=== PATIENT | female | born 1980 | race Caucasian/White ===

== ENCOUNTER 2022-04-28 01:36 | Outpatient (CLI) | payer MEDICAID, SELFPAY ==
[2022-04-28 07:53] LABS: HCT 40.9 % (36.0-46.0); HGB 13.7 g/dL (11.2-15.7); MCH 29.8 pg (27.0-33.0); MCHC 33.5 % (32.0-36.0); MCV 89 fL (80-95); MPV 10.7 fL (8.0-11.0); Platelet Count 203 10^3/uL (130-400); RBC 4.59 10^6/uL (3.93-5.22); RDW 12.4 % (11.7-14.6); RDW-SD 40.3 fL; WBC 7.24 10^3/uL (4.4-10.8)
[2022-04-28 09:25] LABS: ALT 24 U/L (14-59); AST 11 U/L (15-37); Alkaline Phosphatase 90 U/L (46-116); Anion Gap 8.1 mmol/L (3-11); BUN 20 mg/dL (7-18); Bilirubin, Total 0.4 mg/dL (0.2-1.0); CO2 28.9 mmol/L (21.0-32.0); CREATININE 0.7 mg/dL (0.55-1.02); Calcium 8.9 mg/dL (8.5-10.1); Calculated LDL 97 mg/dL (<100); Chloride 102 mmol/L (98-107); Cholesterol 164 mg/dL (<200); Glucose 79 mg/dL (74-106); HDL Cholesterol 57 mg/dL (40-60); Potassium 4.1 mmol/L (3.5-5.1); Sodium 139 mmol/L (136-145); Total Protein 7.2 g/dL (6.4-8.2); Triglyceride 54 mg/dL (<150)
== END 2022-04-28 01:37 | disposition home or self-care (01) ==
LOC: LBO 01:38
PROVIDERS: PCP Student in an Organized Health Care Education/Training Program
DX: I10 Essential (primary) hypertension (principal); N28.9 Disorder of kidney and ureter, unspecified; Z13.0 Encounter for screening for diseases of the blood and blood-forming organs and certain disorders involving the immune mechanism
CPT/HCPCS: 36415; 80053; 80061; 85027

== ENCOUNTER → 2022-08-01 10:15 | Outpatient (CLI) | payer MEDICAID, SELFPAY ==
--- NOTE | 2022-08-01 | DI.RAD_ITS ---
Exam(s) XR ABDOMEN FLAT PLATE EXAM: XR ABDOMEN FLAT PLATE CLINICAL HISTORY: RIGHT LOWER QUADRANT PAINX1 WEEK, QUESTION DEGREE OF STOOL BURDEN. TECHNIQUE: 2D digital imaging was performed. COMPARISON: No exams were available for comparison FINDINGS: Single view. Air is seen in the stomach which is not distended. There is a 3 millimeter calculus in the inferior pole calyx of the right kidney noted. No calculi in seen distally in the ureters. Small calcification left side of the pelvis has appearance of a proba ble phlebolith. There is air in the splenic flexure of the colon as well as air within the sigmoid. No pneumatosis. There is sacralization of the L5 lumbar spine segment. IMPRESSION: Small calculus projected over the inferior pole the right kidney. Other findings as above. DATA REPOSITORY: RADIATION DOSE DELIVERED:
--- NOTE | 2022-08-01 11:11 | DI.VRAD_ITS ---
PROCEDURE INFORMATION: Exam: XR Abdomen Exam date and time: 08/01/2022 10:58 AM Age: 42 years old Clinical indication: Other: Right lower abdominal pain, question degree of stool burden TECHNIQUE: Imaging protocol: Radiologic exam of the abdomen. Views: Frontal supine view of the abdomen. 1 View. COMPARISON: No relevant prior studies available. FINDINGS: Gastrointestinal tract: Mild fecal material along the left colon. Bones/joints: Unremarkable. IMPRESSION: Mild fecal material along the left colon. Dictated and Authenticated by: Nilesh Beatty MD. Ordering:NICOLE Rajan MD
== END ==
PROVIDERS: PCP Student in an Organized Health Care Education/Training Program; Visit Provider Physician Assistant Medical
DX: R10.31 Right lower quadrant pain (principal); N20.0 Calculus of kidney
CPT/HCPCS: 74018

== ENCOUNTER 2022-08-01 10:26 | Outpatient (REF) | payer MEDICAID, SELFPAY ==
[2022-08-01 16:46] LABS: Abs Immature Grans 0.03 10^3/uL (0.0-0.06); Absolute Eosinophil Count 0.18 10^3/uL (0.0-0.7); Absolute Lymphocyte Count 2.35 10^3/uL (1.2-3.4); Absolute Monocyte Count 0.95 10^3/uL (0.1-0.8); Basophils % 0.6; Eosinophils % 1.4; HCT 43.5 % (36.0-46.0); HGB 14.2 g/dL (11.2-15.7); Immature Grans % 0.2; Lymphocytes % 18.5; MCH 29.9 pg (27.0-33.0); MCHC 32.6 % (32.0-36.0); MCV 92 fL (80-95); MPV 12.1 fL (8.0-11.0); Monocytes % 7.5; Neutrophils % 71.8; Platelet Count 253 10^3/uL (130-400); RBC 4.75 10^6/uL (3.93-5.22); RDW 11.9 % (11.7-14.6); WBC 12.68 10^3/uL (4.4-10.8)
[2022-08-01 16:52] LABS: ALT 21 U/L (14-59); AST 20 U/L (15-37); Albumin 3.5 g/dL (3.4-5.0); Alkaline Phosphatase 97 U/L (46-116); Anion Gap 6.5 mmol/L (3-11); BUN 13 mg/dL (7-18); Bilirubin, Total 0.5 mg/dL (0.2-1.0); CO2 29.5 mmol/L (21.0-32.0); CREATININE 0.7 mg/dL (0.55-1.02); Calcium 9.1 mg/dL (8.5-10.1); Chloride 102 mmol/L (98-107); Estimated GFR 112.05 (mL/min/1.73m2); Glucose 80 mg/dL (74-106); Sodium 138 mmol/L (136-145); Total Protein 7.5 g/dL (6.4-8.2)
[2022-08-01 17:07] LABS: Absolute Basophil Count 0.08 10^3/uL (0.0-0.2)
== END 2022-08-01 10:27 | disposition home or self-care (01) ==
LOC: LBN 10:26
PROVIDERS: PCP Student in an Organized Health Care Education/Training Program; Visit Provider Physician Assistant Medical
DX: R10.31 Right lower quadrant pain (principal)
CPT/HCPCS: 80053; 85025

== ENCOUNTER → 2022-08-03 14:43 | Outpatient (CLI) | payer MEDICAID, SELFPAY ==
--- NOTE | 2022-08-03 | DI.US_ITS ---
Exam(s) US PELVIS TRANSVAGINAL EXAM: US PELVIS TRANSVAGINAL CLINICAL HISTORY: RLQ ABD PAIN, R10.31 TECHNIQUE: Ultrasound of the pelvis was performed both transabdominal and transvaginal. COMPARISON: CR,XR XR ABDOMEN FLAT PLATE from 08/01/2022 FINDINGS: UTERUS: Nongravid and anteverted Measures 7 cm length x 2 cm AP x 4.5 cm wide. There are no uterine fibroids. Endometrial thickness measures only 1.5 mm. There is no fluid in the endometrial canal. CERVIX: There are no obvious nabothian cysts. RIGHT OVARY: Measures 2.7 x 2.7 x 1.9 cm cm Contains follicular cysts measuring up to 1 cm. LEFT OVARY: Measures 0.7 x 2.9 x 2.2 cm Also contains follicular cysts measuring up to 1 cm. There no extraovarian adnexal masses. CUL-DE-SAC: No free fluid evident. KIDNEYS: There is a 4 millimeter nonobstructive calculus in the midpole level of the left kidney. Al so 7 x 5 millimeter calculus in the anterior cortex of right kidney. No hydronephrosis. IMPRESSION: 1. Endometrial stripe thickness is 1.5 millimeters. No fluid in the endometrial canal. No uterine f ibroids. 2. Multiple follicular cysts in the ovaries measuring up to 1 cm size bilaterally. 3. No extraovarian adnexal masses and no free fluid in the cul-de-sac. Small calculi incidentally noted in both kidneys, nonobstructive. DATA REPOSITORY:
== END ==
PROVIDERS: PCP Student in an Organized Health Care Education/Training Program; Visit Provider Physician Assistant Medical
DX: R10.31 Right lower quadrant pain (principal); N83.01 Follicular cyst of right ovary; N83.02 Follicular cyst of left ovary; N20.0 Calculus of kidney
CPT/HCPCS: 76830; 76856

== ENCOUNTER 2023-02-01 00:21 | Emergency (ER) | payer MEDICAID, SELFPAY ==
[2023-02-01 00:25] VITALS: BP 166/125; PULSE 91; RESP 18; TEMP 36.3; O2SAT 98
--- NOTE | 2023-02-01 00:37 | ED.GENADUL_ITS ---
Discharge Plan Disposition Patient Disposition: Home Discharge Details Clinical Impression: Allergic reaction, Urticarial rash, Elevated BP without diagnosis of hypertension Primary Care Provider: Savanna Browne ED Provider: Ashish Lopez Discharge Instructions Instructions: Urticaria (ED), General Allergic Reaction (ED) Additional Instructions: Please read all of the information that accompanies these instructions. You were seen in the emergency department for your rash and allergic reaction for which you received steroids and an antacid medication. Please return to the emergency department if you develop any difficulty breathing shortness of breath or have any other concerns. You may take Zyrtec or Benadryl at home as needed.. Medical Decision Making This is an overall very well-appearing afebrile and not tachycardic 43-year-old female with acute urticaria and pruritus to bilateral hands concerning for allergic reaction. No airway breathing or circulatory concerns to suggest anaphylaxis. Patient does have some reports of acid reflux but has no persistent GI symptoms of vomiting diarrhea nor cramping abdominal pain so my suspicion is low for anaphylaxis. As result no indication for epinephrine. No history of BLANCHE or ARB use to suggest angioedema. Patient took second-generation antihistamine at home with cetirizine. Will treat acid reflux with famotidine and treat allergic reaction with dexamethasone. We will give patient return indications including any difficulty breathing any shortness of breath or any syncopal episodes. Otherwise we will pursue an empiric course of expectant outpatient management. 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 She and I also discussed that dexamethasone took several hours to act but that she should have symptomatic relief later this morning. 1:20 AM No progression of symptoms in the emergency department. Patient understands to return if her symptoms worsen. Vitals without hypoxia. Elevated blood pressure without diagnosis of hypertension likely secondary to pruritus. HPI General Date/Time Provider Initiated Documentation: 02/01/23 00:37 . HPI Narrative: This is a previously healthy 43-year-old female in the emergency department in the setting of an allergic reaction with hives all of her body. Patient reports that she takes no medications at baseline. She said that she had a normal day and for dinner had some pizza and beer. At 6 PM this evening she noticed some itching and swelling in her hands. She was putting her [id number] to bed and by 10 PM she noticed that the swelling had spread up her arms and was in her fingers and her face. It subsequently became associated with a rash across her trunk and down in her groin. She has had no swelling in her mouth nor her tongue. She does feel that her lips are slightly swollen. She has had no difficulty breathing and no wheezes. She denies shortness of breath. She has no history of reactive airway disease. She denies any new detergents. She has no prior history of similar symptoms. She does say that when she was lying down this evening she had some symptoms of indigestion which she reports is abnormal for her. She has had no vomiting diarrhea nor cramping abdominal pain. She denies chest pain dysuria and frequency. She denies routine tobacco and illicits. He occasionally drinks ethanol. Related Data Allergies Allergy/AdvReac Type Severity Reaction Status Date / Time bee venom protein (honey bee) Allergy Intermediate Verified 02/01/23 00:37 General Stated Complaint: Allergic AMERICO: 3 PFSH All Active Problems (Updated 02/01/23 @ 01:23 by Ashish Lopez MD) Allergic reaction (Acute) Urticarial rash (Acute) Elevated BP without diagnosis of hypertension (Acute) Stress incontinence in female (Acute) Mild, 2' cough. 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 Procardia started. Normal spontaneous vaginal delivery (Chronic) Induced 2' HTN; Magnesium infusion 2 days post-.. Medical History (Updated 02/01/23 @ 01:23 by Ashish Lopez MD) Family hx of hypertension History of severe pre-eclampsia Surgical History [place] teeth removed Family History Father Hypertension Paternal Grandmother Cancer Breast cancer Maternal Grandfather Cancer Sister Mental illness in member of household Mother Hypertension Brother Asthma Social History Smoking/Tobacco Use Status: Never Smoking risk assessment performed?: Yes Alcohol Intake: current Alcohol Intake frequency: a few times a week Drug use: Never Substance use type: does not use Adopted: No Caregiver/Support person: No Foster care: No Household members: significant other and children Number of Children: 1 number of grandchildren: 0 Communication Needs: None Education Level: college Details: Bachelor's Degree 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 Pets and animals: Yes (1) Pets and animals: dog(s) Sexually active: Yes Do you think of yourself as: straight/heterosexual Current gender identity: female What is your relationship status?: living with partner How often do you talk on the phone with friends or family?: three or more times per week How often do you get together with friends or relatives?: once per week Do you belong to any clubs or organized social groups?: yes Panel score (0-1 are the most socially isolated patients): 3 What type of physical activity do you participate in: walking and other Details: hiking Duration: 30-45 minutes/day Frequency: 5-6 times per week Special anjali needs: No Seatbelt use: always Helmet use: Yes Helmet use: always Drive intox or ride w/intox furniture mover driver: No Do you feel safe at home: Yes Do you feel safe in your relationship?: Yes History History 1 Para 1 Hx # Term Pregnancies 1 Multiple births Hx # Pregnancies Ectopic pregnancies AB induced Hx Number of Living Children 1 AB spontaneous Exam Narrative Exam Narrative: General: Well-appearing in no acute distress speaking in complete sentences. Head: Normocephalic, atraumatic Ear, nose, mouth, throat: Grossly normal inspection. Normal voice, handling secretions normally. No significant posterior oropharynx swelling. No tongue swelling. No lip swelling. Neck: Trachea midline. Cardiovascular: Well-perfused distal extremities. Regular rate and rhythm. No murmurs. Respiratory: Nonlabored respiration. Clear lungs bilaterally no wheeze. Gastrointestinal: Nondistended abdomen. Nontender abdomen. Musculoskeletal: No edema. Moving all 4 extremities spontaneously. Skin: diffuse urticarial rash to bilateral upper extremities and trunk.. Neurologic: Alert and appropriate, no apparent acute deficits. Psychiatric: Mood and manner are appropriate. Grooming and personal hygiene are appropriate. Course Vital Signs Vital signs: Vital Signs Temperature 36.3 C L 02/01/23 00:25 Pulse 91 H 02/01/23 00:25 Respiratory Rate 18 02/01/23 00:25 Blood Pressure 166/125 H 02/01/23 00:25 Pulse Oximetry 98 02/01/23 00:25 Temperature 36.3 C L 02/01/23 00:25 Temperature Source Oral 02/01/23 00:25 Pulse 91 H 02/01/23 00:25 Respiratory Rate 18 02/01/23 00:25 Respiratory Effort Normal 02/01/23 00:29 Respiratory Pattern Normal 02/01/23 00:29 Blood Pressure 166/125 H 02/01/23 00:25 Blood Pressure Position Sitting 02/01/23 00:25 Pulse Oximetry 98 02/01/23 00:25 Oxygen Delivery Method Room Air 02/01/23 00:25 Oxygen Flow Rate 0 02/01/23 00:25
[2023-02-01] MEDS: Dexamethasone 10 MG/ML VIAL IVP (01:12)
[2023-02-01] MEDS: Famotidine 20 MG/2 ML VIAL 40 MG IVP (01:13)
[2023-02-01 01:49] VITALS: PULSE 72; RESP 18
== END 2023-02-01 01:50 | disposition home or self-care (01) ==
PROVIDERS: Emergency Provider Emergency Medicine; PCP Student in an Organized Health Care Education/Training Program
DX: T78.40XA Allergy, unspecified, initial encounter (principal); R03.0 Elevated blood-pressure reading, without diagnosis of hypertension; L50.0 Allergic urticaria
CPT/HCPCS: 96374; 96375; 99284; 99283; J1100

== ENCOUNTER 2023-04-20 03:00 | Outpatient (CLI) | payer MEDICAID, SELFPAY ==
--- NOTE | 2023-04-20 08:00 | DI.US_ITS ---
Exam(s) US OB 1ST TRIMESTER EXAM: US OB 1ST TRIMESTER CLINICAL HISTORY: verify viability,vaginal bleeding in early ,O20.9. TECHNIQUE: First trimester obstetrical ultrasound was performed. COMPARISON: US US PELVIS TRANSVAGINAL from 08/03/2022 FINDINGS: There is an intrauterine gestational sac which contains a yolk sac and viable pole which exhibi ts heart rate of 117-123 bpm. [place]-rump length measurement is 9.2 mm, corresponding to 7 weeks gestational age. Yolk sac measures 2.4 mm. There appears to be a small subchorionic hemorrhage measuring 11 x 2 x 17 mm Maternal ovaries: Both appear unremarkable. IMPRESSION:: Single viable intrauterine gestation which is approximately 7 weeks gestational age by crown rump length measurement, implying LEE ANN of 12/07/2023, There is a small subchorionic hemorrhage noted measurements as above There is no free fluid evident in the cul-de-sac. DATA REPOSITORY:
== END 2023-04-20 03:20 ==
LOC: DI 03:00
PROVIDERS: PCP Student in an Organized Health Care Education/Training Program; Visit Provider Advanced Practice Midwife
DX: O20.9 Hemorrhage in early pregnancy, unspecified (principal)
CPT/HCPCS: 76801

== ENCOUNTER 2023-05-18 02:10 | Outpatient (CLI) | payer MEDICAID, SELFPAY ==
[2023-05-18 15:33] LABS: Abs Immature Grans 0.03 10^3/uL (0.0-0.06); Absolute Basophil Count 0.03 10^3/uL (0.0-0.2); Absolute Eosinophil Count 0.12 10^3/uL (0.0-0.7); Absolute Lymphocyte Count 2.58 10^3/uL (1.2-3.4); Absolute Neutrophil Count 6.69 10^3/uL (1.2-6.7); Basophils % 0.3; Eosinophils % 1.2; HCT 35.8 % (36.0-46.0); HGB 12.2 g/dL (11.2-15.7); Immature Grans % 0.3; Lymphocytes % 26.2; MCH 29.8 pg (27.0-33.0); MCHC 34.1 % (32.0-36.0); MCV 88 fL (80-95); MPV 10.7 fL (8.0-11.0); Monocytes % 4.1; Neutrophils % 67.9; Platelet Count 253 10^3/uL (130-400); RBC 4.09 10^6/uL (3.93-5.22); RDW 13.2 % (11.7-14.6); RDW-SD 42.6 fL; WBC 9.85 10^3/uL (4.4-10.8)
[2023-05-18 15:43] LABS: Panorama Kit Sent via Fed Ex
[2023-05-18 16:09] LABS: ALT 25 U/L (14-59); AST 15 U/L (15-37); Albumin 3.7 g/dL (3.4-5.0); Alkaline Phosphatase 64 U/L (46-116); Anion Gap 9.6 mmol/L (3-11); BUN 14 mg/dL (7-18); Bilirubin, Total 0.3 mg/dL (0.2-1.0); CO2 27.4 mmol/L (21.0-32.0); CREATININE 0.6 mg/dL (0.55-1.02); Calcium 9.5 mg/dL (8.5-10.1); Chloride 101 mmol/L (98-107); Estimated GFR 115.57 (mL/min/1.73m2); Glucose 87 mg/dL (74-106); Potassium 3.5 mmol/L (3.5-5.1); Sodium 138 mmol/L (136-145); Total Protein 7.3 g/dL (6.4-8.2)
[2023-05-18 18:52] LABS: *AMPHETAMINES SCREEN URINE Negative (Negative); *BARBITURATES SCREEN URINE Negative (Negative); *BENZODIAZEPINES SCREEN URINE Negative (Negative); Cannabinoids THC Negative (Negative); Cocaine Screen,Urine Negative (Negative); METHADONE URINE SCREEN Negative (Negative); OPIATES URINE SCREEN Negative (Negative)
[2023-05-18 18:57] LABS: Tricyclic Antidepressants Negative (Negative)
[2023-05-20 09:58] LABS: Hepatitis B Surface Ag Negative (Negative)
[2023-05-20 10:01] LABS: Varicella IgG Antibody Positive (See Note)
[2023-05-20 10:09] LABS: Rubella IgG Ab (UVM) Positive (See Note)
[2023-05-20 10:44] LABS: HIV-1/2 Ag & Ab Screen Negative (Negative)
[2023-05-20 23:49] LABS: Syphilis IgG w/Reflex Nonreactive (Nonreactive)
[2023-05-21 09:55] LABS: Hepatitis C Ab w Rflx HCV PCR Negative (Negative)
[2023-05-28 14:20] LABS: Buprenorphine Negative ng/mL (Cutoff: 5.0); Norbuprenorphine Negative ng/mL (Cutoff: 2.5)
== END 2023-05-18 02:11 | disposition home or self-care (01) ==
LOC: LBO 02:10
PROVIDERS: PCP Student in an Organized Health Care Education/Training Program; Visit Provider Advanced Practice Midwife
DX: O09.521 Supervision of elderly multigravida, first trimester; Z3A.00 Weeks of gestation of pregnancy not specified
CPT/HCPCS: 36415; 80053; 80307; 80348; 86787; 86803; 86850; 86900; 86901; 87340; 87389; 85025; 86762; 86780; 87086

== ENCOUNTER 2023-05-27 15:18 | Outpatient (CLI) | payer MEDICAID, SELFPAY ==
[2023-05-27 14:12] LABS: Panorama Kit Sent via Fed Ex
== END 2023-05-27 15:19 | disposition home or self-care (01) ==
LOC: LBO 15:19
PROVIDERS: PCP Student in an Organized Health Care Education/Training Program; Visit Provider Advanced Practice Midwife
DX: O09.521 Supervision of elderly multigravida, first trimester (principal)
CPT/HCPCS: 36415

== ENCOUNTER 2023-06-25 11:01 | Outpatient (REF) | payer MEDICAID, SELFPAY ==
[2023-06-25 13:57] LABS: PROTEIN < 6.0 mg/dL (0.0-11.9); Total Volume 3000 ml
== END 2023-06-25 11:02 | disposition home or self-care (01) ==
LOC: LBN 11:01
PROVIDERS: PCP Student in an Organized Health Care Education/Training Program; Visit Provider Advanced Practice Midwife
DX: O13.2 Gestational [pregnancy-induced] hypertension without significant proteinuria, second trimester (principal); Z3A.17 17 weeks gestation of pregnancy
CPT/HCPCS: 81050; 84155

== ENCOUNTER → 2023-07-22 09:53 | Outpatient (CLI) | payer MEDICAID, SELFPAY ==
--- NOTE | 2023-07-22 09:50 | DI.RAD_ITS ---
Exam(s) XR FOOT RT COMPLETE EXAM: XR FOOT RT COMPLETE CLINICAL HISTORY: RIGHT FOOT METATARSALGIA-M77.41. TECHNIQUE: 2D digital imaging was performed of the right foot. Three images were obtained. AP, obl ique and lateral views were obtained. COMPARISON: No exams were available for comparison FINDINGS: BONES: No acute fracture is present. No bony destructive lesion is seen. JOINTS: No dislocation present. SOFT TISSUE: Normal. IMPRESSION: Unremarkable radiographs of the right foot. DATA REPOSITORY: RADIATION DOSE DELIVERED:
== END ==
PROVIDERS: PCP Student in an Organized Health Care Education/Training Program; Visit Provider Podiatrist
DX: M77.41 Metatarsalgia, right foot (principal)
CPT/HCPCS: 73630

== ENCOUNTER 2023-08-31 12:02 | Outpatient (CLI) | payer OTHER, MEDICAID, SELFPAY ==
[2023-08-31 12:10] VITALS: BP 136/85; PULSE 80; TEMP 36.7
[2023-08-31 12:16] VITALS: BP 136/85; PULSE 80
[2023-08-31 13:07] LABS: COMMENT (LAB VIEW ONLY) < 13.00 mg/dL; PROTEIN < 6.0 mg/dL
[2023-08-31 13:11] LABS: HCT 35.8 % (36.0-46.0); HGB 12.1 g/dL (11.2-15.7); MCH 30.7 pg (27.0-33.0); MCHC 33.8 % (32.0-36.0); MCV 91 fL (80-95); MPV 10.6 fL (8.0-11.0); Platelet Count 191 10^3/uL (130-400); RBC 3.94 10^6/uL (3.93-5.22); RDW 12.3 % (11.7-14.6); RDW-SD 40.9 fL; WBC 12.54 10^3/uL (4.4-10.8)
[2023-08-31 13:33] LABS: ALT 18 U/L (14-59); AST 15 U/L (15-37); Albumin 2.7 g/dL (3.4-5.0); Alkaline Phosphatase 73 U/L (46-116); Anion Gap 7.1 mmol/L (3-11); BUN 12 mg/dL (7-18); Bilirubin, Total 0.2 mg/dL (0.2-1.0); CO2 25.9 mmol/L (21.0-32.0); CREATININE 0.4 mg/dL (0.55-1.02); Calcium 9.1 mg/dL (8.5-10.1); Chloride 104 mmol/L (98-107); Estimated GFR 127.44 (mL/min/1.73m2); Glucose 115 mg/dL (74-106); Potassium 3.3 mmol/L (3.5-5.1); Sodium 137 mmol/L (136-145); Total Protein 6.6 g/dL (6.4-8.2); Uric Acid 3.5 mg/dL (2.6-6.0)
[2023-08-31 13:38] LABS: Glucose,1 Hr (Glucola) 117 mg/dL (80-140)
--- NOTE | 2023-08-31 15:58 | W.OBNST ---
Date of service: 08/31/23 Time of Service: 15:58 NST Evaluation Reason for NST Reasons for Nonstress Test: GESTATIONAL HYPERTENSION Gestational Age Gestational Age in Weeks and Days: 26 Weeks and 3Days Test and Monitor Explained Test/Monitor Explained: Test Explained, Monitor Explained and Patient Verbalized Understanding Vital Signs Blood Pressure: 136/85 Pulse: 80 Temperature: 98.1 F NST Information Date on Monitor: 08/31/23 Time on Monitor: 12:13 Date off Monitor: 08/31/23 Time off Monitor: 12:35 Total Time on Monitor: 22 NST Interventions: None Contraction Frequency: 0 NST Evaluation Patient States Movement: Present FHR Baseline: 130 Variability: Moderate 6-25 bpm Accelerations: 10x10 Decelerations: None NST Results: Reactive Note Ultrasound Done: N/A. NST Note Note: BP elevated in the office. No edema or symptoms of preeclampsia. GTT and preeclampsia labs drawn and are negative. [facility] NST Reviewed and Verified by: Chloé Dawn
[2023-08-31 16:00] VITALS: BP 136/85; PULSE 80; TEMP 36.7
== END 2023-08-31 13:26 | disposition home or self-care (01) ==
LOC: BCD 12:04 → OBS 12:05
PROVIDERS: Advanced Practice Midwife; PCP Student in an Organized Health Care Education/Training Program; Visit Provider Advanced Practice Midwife
DX: O13.3 Gestational [pregnancy-induced] hypertension without significant proteinuria, third trimester (principal); Z3A.26 26 weeks gestation of pregnancy
CPT/HCPCS: 80053; 82950; 85027; 59025; 82565; 84156; 84550

== ENCOUNTER 2023-09-23 16:38 | Outpatient (CLI) | payer OTHER, SELFPAY ==
[2023-09-23 17:54] VITALS: BP 136/77; PULSE 85
[2023-09-23 18:30] VITALS: BP 136/77; PULSE 85; TEMP 36.6
[2023-09-23 18:34] VITALS: BP 139/88; PULSE 87
--- NOTE | 2023-09-23 18:58 | W.OBNST ---
Date of service: 09/23/23 Time of Service: 18:58 NST Evaluation Reason for NST Reasons for Nonstress Test: OTHER, SEE COMMENT Reason for NST Other: Elevated BP at urgent care Gestational Age Gestational Age in Weeks and Days: 29 Weeks and 5Days Test and Monitor Explained Test/Monitor Explained: Test Explained, Monitor Explained and Patient Verbalized Understanding Vital Signs Blood Pressure: 136/77 Pulse: 85 Temperature: 97.9 F NST Information Date on Monitor: 09/23/23 Time on Monitor: 17:43 Date off Monitor: 09/23/23 Time off Monitor: 18:22 Total Time on Monitor: 39 NST Interventions: PO Hydration and Notify Provider Contraction Frequency: 0 NST Evaluation Patient States Movement: Present FHR Baseline: 155 Variability: Moderate 6-25 bpm Accelerations: 15x15 Decelerations: None NST Results: Reactive Note Ultrasound Done: N/A. NST Note Note: CMP, CBC, and urine prot/creat drawn Will call results to pt She has a URI, given Rx for ear infection @ urgent care today Viral swab at urgent care was negative NST Reviewed and Verified by: Blanka Boudreaux
[2023-09-23 19:00] VITALS: BP 136/77; PULSE 85; TEMP 36.6
[2023-09-23 19:02] VITALS: BP 137/82; PULSE 78
[2023-09-23 19:04] LABS: HCT 35.2 % (36.0-46.0); HGB 12.1 g/dL (11.2-15.7); MCH 30.7 pg (27.0-33.0); MCHC 34.4 % (32.0-36.0); MCV 89 fL (80-95); MPV 10.4 fL (8.0-11.0); Platelet Count 194 10^3/uL (130-400); RBC 3.94 10^6/uL (3.93-5.22); RDW 11.9 % (11.7-14.6); RDW-SD 39.1 fL
[2023-09-23 19:18] LABS: Uric Acid 3.4 mg/dL (2.6-6.0)
[2023-09-23 19:24] LABS: ALT 22 U/L (14-59); AST 20 U/L (15-37); Albumin 2.5 g/dL (3.4-5.0); Alkaline Phosphatase 82 U/L (46-116); Anion Gap 7.8 mmol/L (3-11); BUN 12 mg/dL (7-18); Bilirubin, Total 0.1 mg/dL (0.2-1.0); CO2 26.2 mmol/L (21.0-32.0); CREATININE 0.5 mg/dL (0.55-1.02); Calcium 9.1 mg/dL (8.5-10.1); Chloride 104 mmol/L (98-107); Estimated GFR 120.77 (mL/min/1.73m2); Glucose 97 mg/dL (74-106); Potassium 3.2 mmol/L (3.5-5.1); Sodium 138 mmol/L (136-145); Total Protein 6.6 g/dL (6.4-8.2)
[2023-09-23 19:50] LABS: COMMENT (LAB VIEW ONLY) 81.39 mg/dL; PROTEIN 14.5 mg/dL; Prot/Crea Ur Ratio 0.17
== END 2023-09-23 19:00 ==
LOC: BCD 16:39 → OBS 17:01
PROVIDERS: PCP Student in an Organized Health Care Education/Training Program; Visit Provider Advanced Practice Midwife
DX: O26.893 Other specified pregnancy related conditions, third trimester (principal); R03.0 Elevated blood-pressure reading, without diagnosis of hypertension; Z3A.29 29 weeks gestation of pregnancy
CPT/HCPCS: 80053; 85027; 59025; 82565; 84156; 84550

== ENCOUNTER 2023-10-13 10:39 | Outpatient (REF) | payer OTHER, SELFPAY ==
[2023-10-13 11:13] LABS: PROTEIN 9.2 mg/dL; Prot/Crea Ur Ratio 0.19
== END 2023-10-13 10:40 | disposition home or self-care (01) ==
LOC: LBN 10:39
PROVIDERS: PCP Student in an Organized Health Care Education/Training Program; Visit Provider Advanced Practice Midwife
DX: O13.3 Gestational [pregnancy-induced] hypertension without significant proteinuria, third trimester (principal)
CPT/HCPCS: 82565; 84156

== ENCOUNTER → 2023-10-19 02:42 | Outpatient (CLI) | payer OTHER, SELFPAY ==
--- NOTE | 2023-10-19 07:30 | DI.US_ITS ---
Exam(s) US OB TAMIA WEIGHT EXAM: US OB TAMIA WEIGHT CLINICAL HISTORY: growth,advanced maternal age. TECHNIQUE: Transabdominal obstetrical ultrasound was performed. COMPARISON: US US OB 1ST TRIMESTER from 04/20/2023 FINDINGS: There is a single viable intrauterine gestation with cardiac activity identified-141 bpm The fetus is presently in cephalic position with spine pointing anteriorly to maternal left laron e. Amniotic fluid: There is a normal amount of amniotic fluid with an TAMIA of 13.46cm. Placental location: The placenta is posterior grade 2,with no evidence of placenta previa.Distance fr om tip of placenta to the internal cervical os is [address] this at approximately 33 weeks and 4 days gestational age, implying LEE ANN of 12/03/2023. BPD measures 34 weeks and 0 days HC measures 34 weeks and 4 days AC measures 32 weeks and 6 days FL measures 33 weeks and 0 days Estimated weight is 2137 gm-4 pounds 11 ounces Fetus is at the 34th percentile on the Hadlock scale. IMPRESSION:: Viable 3rd trimester gestation, as described above. DATA REPOSITORY:
== END ==
PROVIDERS: PCP Student in an Organized Health Care Education/Training Program; Visit Provider Obstetrics & Gynecology
DX: Z34.93 Encounter for supervision of normal pregnancy, unspecified, third trimester (principal); O09.523 Supervision of elderly multigravida, third trimester
CPT/HCPCS: 76816

== ENCOUNTER 2023-10-19 09:42 | Outpatient (CLI) | payer OTHER, SELFPAY ==
[2023-10-19 10:03] LABS: HCT 37.7 % (36.0-46.0); HGB 12.7 g/dL (11.2-15.7); MCH 30.2 pg (27.0-33.0); MCHC 33.7 % (32.0-36.0); MCV 90 fL (80-95); MPV 11.1 fL (8.0-11.0); Platelet Count 216 10^3/uL (130-400); RBC 4.21 10^6/uL (3.93-5.22); RDW 11.8 % (11.7-14.6); WBC 13.56 10^3/uL (4.4-10.8)
[2023-10-19 10:48] LABS: ALT 23 U/L (14-59); AST 20 U/L (15-37); Albumin 2.6 g/dL (3.4-5.0); Alkaline Phosphatase 119 U/L (46-116); Anion Gap 8.4 mmol/L (3-11); BUN 10 mg/dL (7-18); Bilirubin, Total 0.3 mg/dL (0.2-1.0); CO2 25.6 mmol/L (21.0-32.0); CREATININE 0.6 mg/dL (0.55-1.02); Calcium 8.9 mg/dL (8.5-10.1); Chloride 101 mmol/L (98-107); Estimated GFR 115.57 (mL/min/1.73m2); Glucose 89 mg/dL (74-106); Potassium 3.8 mmol/L (3.5-5.1); Sodium 135 mmol/L (136-145); Total Protein 7.1 g/dL (6.4-8.2)
== END 2023-10-19 09:43 | disposition home or self-care (01) ==
LOC: LBO 09:46
PROVIDERS: PCP Student in an Organized Health Care Education/Training Program; Visit Provider Advanced Practice Midwife
DX: O13.3 Gestational [pregnancy-induced] hypertension without significant proteinuria, third trimester (principal); Z34.93 Encounter for supervision of normal pregnancy, unspecified, third trimester
CPT/HCPCS: 36415; 80053; 85027

== ENCOUNTER 2023-10-23 09:56 | Outpatient (CLI) | payer OTHER, SELFPAY ==
[2023-10-23 10:06] VITALS: BP 130/71; PULSE 78; TEMP 36.8
[2023-10-23 10:35] VITALS: BP 130/71; PULSE 78
--- NOTE | 2023-10-23 13:23 | W.OBNST ---
Date of service: 10/23/23 Time of Service: 10:30 NST Evaluation Reason for NST Reasons for Nonstress Test: GESTATIONAL HYPERTENSION Gestational Age Gestational Age in Weeks and Days: 34 Weeks and 0Days Test and Monitor Explained Test/Monitor Explained: Test Explained and Monitor Explained Vital Signs Blood Pressure: 130/71 Pulse: 78 Temperature: 98.2 F NST Information Date on Monitor: 10/23/23 Time on Monitor: 10:05 Date off Monitor: 10/23/23 Time off Monitor: 10:56 Total Time on Monitor: 51 NST Interventions: PO Hydration NST Evaluation Patient States Movement: Present FHR Baseline: 135 Variability: Moderate 6-25 bpm Accelerations: 15x15 Decelerations: None NST Results: Reactive Note Ultrasound Done: N/A. NST Note Note: NST for chronic hypertension. Reactive NST. Started labetalol 100 mg BID 2 days ago. RTO in 5 days for visit and NST. NST Reviewed and Verified by: Chloé Dawn
[2023-10-23 13:24] VITALS: BP 130/71; PULSE 78; TEMP 36.8
== END 2023-10-23 11:10 | disposition home or self-care (01) ==
LOC: BCD 09:58 → OBS 10:03
PROVIDERS: PCP Student in an Organized Health Care Education/Training Program; Visit Provider Advanced Practice Midwife
DX: O13.3 Gestational [pregnancy-induced] hypertension without significant proteinuria, third trimester (principal); Z3A.34 34 weeks gestation of pregnancy
CPT/HCPCS: 59025

== ENCOUNTER 2023-10-29 08:46 | Outpatient (CLI) | payer OTHER, SELFPAY ==
[2023-10-29 12:23] VITALS: BP 138/78; PULSE 75; TEMP 36.5
[2023-10-29 12:30] VITALS: BP 138/78; PULSE 75
--- NOTE | 2023-10-29 12:46 | W.OBNST ---
Date of service: 10/29/23 Time of Service: 12:46 NST Evaluation Reason for NST Reasons for Nonstress Test: GESTATIONAL HYPERTENSION Gestational Age Gestational Age in Weeks and Days: 34 Weeks and 6Days Test and Monitor Explained Test/Monitor Explained: Test Explained, Monitor Explained and Patient Verbalized Understanding Vital Signs Blood Pressure: 138/78 Pulse: 75 Temperature: 97.7 F NST Information Date on Monitor: 10/29/23 Time on Monitor: 12:20 Date off Monitor: 10/29/23 Time off Monitor: 12:42 Total Time on Monitor: 22 NST Interventions: PO Hydration NST Evaluation Patient States Movement: Present FHR Baseline: 130 Variability: Moderate 6-25 bpm Accelerations: 15x15 Decelerations: None NST Results: Reactive Note Ultrasound Done: N/A. NST Note Note: NST is reactive and reassuring. Will return next week for NST. NST Reviewed and Verified by: Chloé Barnes
[2023-10-29 12:47] VITALS: BP 138/78; PULSE 75; TEMP 36.5
== END 2023-10-29 12:44 | disposition home or self-care (01) ==
LOC: BCD 12:18 → OBS 12:22
PROVIDERS: PCP Student in an Organized Health Care Education/Training Program; Visit Provider Advanced Practice Midwife
DX: O13.3 Gestational [pregnancy-induced] hypertension without significant proteinuria, third trimester (principal)
CPT/HCPCS: 59025

== ENCOUNTER 2023-11-04 04:13 | Outpatient (CLI) | payer OTHER, SELFPAY ==
[2023-11-04 14:25] VITALS: BP 128/73; PULSE 76; TEMP 36.8
[2023-11-04 14:36] VITALS: BP 128/73; PULSE 76
--- NOTE | 2023-11-04 15:05 | W.OBNST ---
Date of service: 11/04/23 Time of Service: 15:06 NST Evaluation Reason for NST Reasons for Nonstress Test: GESTATIONAL HYPERTENSION Gestational Age Gestational Age in Weeks and Days: 87 Weeks and 6Days Test and Monitor Explained Test/Monitor Explained: Test Explained and Monitor Explained Vital Signs Blood Pressure: 128/73 Pulse: 76 Temperature: 98.2 F NST Information Date on Monitor: 11/04/23 Time on Monitor: 14:24 Date off Monitor: 11/04/23 Time off Monitor: 14:53 Total Time on Monitor: 29 NST Interventions: PO Hydration NST Evaluation Patient States Movement: Present FHR Baseline: 135 Variability: Absent Accelerations: 15x15 Decelerations: None NST Results: Reactive Note Ultrasound Done: N/A. NST Note Note: Weekly NST for hypertension. Discussed IOL at 38-39 weeks. RTO 1 week for NST and visit NST Reviewed and Verified by: Chloé Dawn
[2023-11-04 15:06] VITALS: BP 128/73; PULSE 76; TEMP 36.8
== END 2023-11-04 15:00 | disposition home or self-care (01) ==
LOC: BCD 04:26 → OBS 14:21
PROVIDERS: PCP Student in an Organized Health Care Education/Training Program; Visit Provider Advanced Practice Midwife
DX: O13.3 Gestational [pregnancy-induced] hypertension without significant proteinuria, third trimester (principal); Z3A.37 37 weeks gestation of pregnancy
CPT/HCPCS: 59025; 87081

== ENCOUNTER 2023-11-09 07:18 | Outpatient (CLI) | payer OTHER, SELFPAY ==
[2023-11-09 10:07] VITALS: BP 147/84; PULSE 75; TEMP 36.6
[2023-11-09 10:28] VITALS: BP 147/84; PULSE 75
[2023-11-09 10:45] VITALS: BP 135/84; PULSE 77
--- NOTE | 2023-11-09 10:52 | W.OBNST ---
Date of service: 11/09/23 Time of Service: 10:52 NST Evaluation Reason for NST Reasons for Nonstress Test: GESTATIONAL HYPERTENSION Gestational Age Gestational Age in Weeks and Days: 36 Weeks and 3Days Test and Monitor Explained Test/Monitor Explained: Test Explained, Monitor Explained and Patient Verbalized Understanding Vital Signs Blood Pressure: 135/84 Pulse: 75 Temperature: 97.9 F NST Information Date on Monitor: 11/09/23 Time on Monitor: 10:12 Date off Monitor: 11/09/23 Time off Monitor: 10:33 Total Time on Monitor: 21 NST Interventions: PO Hydration NST Evaluation Patient States Movement: Present FHR Baseline: 145 Variability: Moderate 6-25 bpm Accelerations: 15x15 Decelerations: None NST Results: Reactive Note Ultrasound Done: N/A. NST Note Note: Labs drawn for monitoring Ultrasound, PN check up and NST on 11/18 IOL booked for 11/23/23 NST Reviewed and Verified by: Blanka Boudreaux
[2023-11-09 10:53] VITALS: BP 135/84; PULSE 75; TEMP 36.6
[2023-11-09 11:18] LABS: HCT 34.8 % (36.0-46.0); HGB 11.7 g/dL (11.2-15.7); MCH 29.9 pg (27.0-33.0); MCHC 33.6 % (32.0-36.0); MCV 89 fL (80-95); MPV 11.1 fL (8.0-11.0); Platelet Count 230 10^3/uL (130-400); RBC 3.91 10^6/uL (3.93-5.22); RDW 12.2 % (11.7-14.6); RDW-SD 39.7 fL; WBC 12.61 10^3/uL (4.4-10.8)
[2023-11-09 11:36] LABS: ALT 24 U/L (14-59); AST 20 U/L (15-37); Albumin 2.5 g/dL (3.4-5.0); Alkaline Phosphatase 119 U/L (46-116); Anion Gap 6.1 mmol/L (3-11); BUN 10 mg/dL (7-18); Bilirubin, Total 0.3 mg/dL (0.2-1.0); CO2 24.9 mmol/L (21.0-32.0); CREATININE 0.6 mg/dL (0.55-1.02); Calcium 9.1 mg/dL (8.5-10.1); Chloride 105 mmol/L (98-107); Estimated GFR 115.57 (mL/min/1.73m2); Glucose 76 mg/dL (74-106); Potassium 3.7 mmol/L (3.5-5.1); Sodium 136 mmol/L (136-145); Total Protein 6.5 g/dL (6.4-8.2)
[2023-11-09 11:47] LABS: COMMENT (LAB VIEW ONLY) < 13.00 mg/dL; PROTEIN < 6.0 mg/dL
== END 2023-11-09 11:04 | disposition home or self-care (01) ==
LOC: BCD 07:19 → OBS 10:06
PROVIDERS: PCP Student in an Organized Health Care Education/Training Program; Visit Provider Advanced Practice Midwife
DX: O13.3 Gestational [pregnancy-induced] hypertension without significant proteinuria, third trimester; Z3A.36 36 weeks gestation of pregnancy
CPT/HCPCS: 36415; 80053; 85027; 59025; 82565; 84156; 84550

== ENCOUNTER 2023-11-12 11:51 | Outpatient (CLI) | payer OTHER, SELFPAY ==
[2023-11-12 12:26] VITALS: BP 136/85; PULSE 77; TEMP 36.6
[2023-11-12 12:35] VITALS: BP 136/85; PULSE 77
[2023-11-12 13:15] LABS: MCH 29.6 pg (27.0-33.0); MCHC 33.3 % (32.0-36.0); MCV 89 fL (80-95); MPV 10.6 fL (8.0-11.0); Platelet Count 217 10^3/uL (130-400); RBC 3.71 10^6/uL (3.93-5.22); RDW 12.3 % (11.7-14.6); RDW-SD 39.8 fL; WBC 12.47 10^3/uL (4.4-10.8)
[2023-11-12 13:17] VITALS: BP 135/83; PULSE 69
--- NOTE | 2023-11-12 13:25 | W.OBNST ---
Date of service: 11/12/23 Time of Service: 13:26 NST Evaluation Reason for NST Reasons for Nonstress Test: GESTATIONAL HYPERTENSION Gestational Age Gestational Age in Weeks and Days: 36 Weeks and 6Days Test and Monitor Explained Test/Monitor Explained: Test Explained, Monitor Explained and Patient Verbalized Understanding Vital Signs Blood Pressure: 136/85 Pulse: 77 Temperature: 97.9 F NST Information Date on Monitor: 11/12/23 Time on Monitor: 12:20 Date off Monitor: 11/12/23 Time off Monitor: 13:11 Total Time on Monitor: 51 NST Interventions: PO Hydration NST Evaluation Patient States Movement: Present FHR Baseline: 135 Variability: Moderate 6-25 bpm Accelerations: 15x15 Decelerations: None NST Results: Reactive Note Ultrasound Done: N/A. NST Note Note: Mallory was not feeling well today and has a mild headache. Her BP was higher than usual at home. BP today is 136/85 and 135/83. She reports that her headache is improving. preeclampsia labs drawn. Await results. Mallory was encouraged to rest today and take adequate fluids. Call if headache persists. RTO in 4 days for NST and BP. NST Reviewed and Verified by: Chloé Dawn
[2023-11-12 13:27] VITALS: BP 136/85; PULSE 77; TEMP 36.6
[2023-11-12 13:30] LABS: ALT 23 U/L (14-59); AST 18 U/L (15-37); Albumin 2.4 g/dL (3.4-5.0); Alkaline Phosphatase 114 U/L (46-116); Anion Gap 6.4 mmol/L (3-11); BUN 7 mg/dL (7-18); Bilirubin, Total 0.3 mg/dL (0.2-1.0); CO2 26.6 mmol/L (21.0-32.0); CREATININE 0.7 mg/dL (0.55-1.02); Calcium 8.6 mg/dL (8.5-10.1); Chloride 103 mmol/L (98-107); Estimated GFR 111.36 (mL/min/1.73m2); Glucose 83 mg/dL (74-106); Potassium 3.8 mmol/L (3.5-5.1); Sodium 136 mmol/L (136-145); Total Protein 6.3 g/dL (6.4-8.2); Uric Acid 4.2 mg/dL (2.6-6.0)
[2023-11-12 14:08] LABS: PROTEIN < 6.0 mg/dL
[2023-11-12 14:10] LABS: COMMENT (LAB VIEW ONLY) < 13.00 mg/dL
== END 2023-11-12 13:35 | disposition home or self-care (01) ==
LOC: BCD 11:52 → OBS 12:25
PROVIDERS: PCP Student in an Organized Health Care Education/Training Program; Visit Provider Advanced Practice Midwife
DX: O13.3 Gestational [pregnancy-induced] hypertension without significant proteinuria, third trimester (principal); Z3A.37 37 weeks gestation of pregnancy
CPT/HCPCS: 80053; 85027; 59025; 82565; 84156; 84550

== ENCOUNTER 2023-11-16 08:20 | Outpatient (CLI) | payer OTHER, SELFPAY ==
[2023-11-16 16:01] VITALS: BP 145/85; PULSE 77; TEMP 36.4
[2023-11-16 16:15] VITALS: BP 145/85; PULSE 77
[2023-11-16 16:33] VITALS: BP 139/88; PULSE 73
--- NOTE | 2023-11-16 16:46 | W.OBNST ---
Date of service: 11/16/23 Time of Service: 16:47 NST Evaluation Reason for NST Reasons for Nonstress Test: GESTATIONAL HYPERTENSION Gestational Age Gestational Age in Weeks and Days: 37 Weeks and 3Days Test and Monitor Explained Test/Monitor Explained: Test Explained, Monitor Explained and Patient Verbalized Understanding Vital Signs Blood Pressure: 145/85 Pulse: 77 Temperature: 97.5 F Urine Results Urine Protein: Negative Urine Ketones: Negative Urine Glucose: Negative Urine Blood: Negative NST Information Date on Monitor: 11/16/23 Time on Monitor: 16:02 Date off Monitor: 11/16/23 Time off Monitor: 16:36 Total Time on Monitor: 34 NST Interventions: None Contraction Frequency: 0 NST Evaluation Patient States Movement: Present FHR Baseline: 130 Variability: Moderate 6-25 bpm Accelerations: 15x15 Decelerations: None NST Results: Reactive Note Ultrasound Done: N/A. NST Note Note: urine prot/creat ratio sent EFW/TAMIA in 2 days IOL scheduled for next week NST Reviewed and Verified by: Blanka Boudreaux
[2023-11-16 16:47] VITALS: BP 145/85; PULSE 77; TEMP 36.4
[2023-11-16 17:00] LABS: COMMENT (LAB VIEW ONLY) 32.55 mg/dL; PROTEIN 7.2 mg/dL; Prot/Crea Ur Ratio 0.22
== END 2023-11-16 17:08 ==
LOC: BCD 08:22 → OBS 15:57
PROVIDERS: PCP Student in an Organized Health Care Education/Training Program; Visit Provider Advanced Practice Midwife
DX: O13.3 Gestational [pregnancy-induced] hypertension without significant proteinuria, third trimester (principal); Z3A.37 37 weeks gestation of pregnancy
CPT/HCPCS: 59025; 82565; 84156

== ENCOUNTER → 2023-11-18 00:24 | Outpatient (CLI) | payer OTHER, SELFPAY ==
--- NOTE | 2023-11-18 06:45 | DI.US_ITS ---
Exam(s) US OB TAMIA WEIGHT EXAM: US OB TAMIA WEIGHT CLINICAL HISTORY: ,gest.hypertension,013.9. TECHNIQUE: Transabdominal obstetrical ultrasound performed. COMPARISON: US US OB 1ST TRIMESTER from 04/20/2023 US US OB TAMIA WEIGHT from 10/19/2023 FINDINGS:: Number of fetuses: One. position: Vertex. Placental location: Posterior. No evidence of previa. BIOMETRIC DATA: BPD: 92mm = 37+ 3 weeks HC: 338mm = 38+ 6 weeks AC: 337mm = 37+ 4 weeks FL: 77 mm = 39+ 3 weeks EFW: 3407 Gms = 72% Composite Age: 38 weeks LEE ANN: 30 November 2023 Heart Rate: 138BPM Amniotic fluid index: 7.6 cm. Amount of fluid is visually within normal limits. IMPRESSION: size and weight are within the expected range. DATA REPOSITORY:
== END ==
PROVIDERS: PCP Student in an Organized Health Care Education/Training Program; Visit Provider Advanced Practice Midwife
DX: O13.9 Gestational [pregnancy-induced] hypertension without significant proteinuria, unspecified trimester (principal); Z3A.37 37 weeks gestation of pregnancy
CPT/HCPCS: 76816

== ENCOUNTER 2023-11-18 07:57 | Outpatient (CLI) | payer OTHER, SELFPAY ==
[2023-11-18 09:13] VITALS: BP 130/75; PULSE 80; TEMP 36.9
[2023-11-18 09:14] VITALS: BP 130/75; PULSE 80
--- NOTE | 2023-11-18 10:17 | W.OBNST ---
Date of service: 11/18/23 Time of Service: 10:17 NST Evaluation Reason for NST Reasons for Nonstress Test: GESTATIONAL HYPERTENSION Gestational Age Gestational Age in Weeks and Days: 37 Weeks and 5Days Test and Monitor Explained Test/Monitor Explained: Test Explained and Monitor Explained Vital Signs Blood Pressure: 130/75 Pulse: 80 Temperature: 98.4 F NST Information Date on Monitor: 11/18/23 Time on Monitor: 09:14 Date off Monitor: 11/18/23 Time off Monitor: 09:55 Total Time on Monitor: 41 NST Interventions: PO Hydration Contraction Frequency: 0 NST Evaluation Patient States Movement: Present FHR Baseline: 150 Variability: Moderate 6-25 bpm Accelerations: 15x15 Decelerations: Variable (resolved with position change) NST Results: Reactive Note Ultrasound Done: N/A. NST Note Note: Scan done in the DI for EFW/TAMIA, 71st percentile and TAMIA=7.5 Variable decels resolved with maternal position change RTO 11/21 for NST IOL scheduled for 1/2 NST Reviewed and Verified by: Blanka Boudreaux
[2023-11-18 10:18] VITALS: BP 130/75; PULSE 80; TEMP 36.9
== END 2023-11-18 10:05 | disposition home or self-care (01) ==
LOC: BCD 07:58 → OBS 09:08
PROVIDERS: PCP Student in an Organized Health Care Education/Training Program; Visit Provider Advanced Practice Midwife
DX: O13.3 Gestational [pregnancy-induced] hypertension without significant proteinuria, third trimester (principal); Z3A.37 37 weeks gestation of pregnancy
CPT/HCPCS: 59025

== ENCOUNTER 2023-11-21 08:39 | Outpatient (CLI) | payer OTHER, SELFPAY ==
[2023-11-21 12:35] VITALS: BP 139/85; PULSE 75; TEMP 36.7
[2023-11-21 12:44] VITALS: BP 139/85; PULSE 75
[2023-11-21 12:54] VITALS: BP 129/76; PULSE 75
--- NOTE | 2023-11-21 13:27 | W.OBNST ---
Date of service: 11/21/23 Time of Service: 13:05 NST Evaluation Reason for NST Reasons for Nonstress Test: CHRONIC HYPERTENSION Gestational Age Gestational Age in Weeks and Days: 38 Weeks and 1Days Test and Monitor Explained Test/Monitor Explained: Test Explained, Monitor Explained and Patient Verbalized Understanding Vital Signs Blood Pressure: 139/85 Pulse: 75 Temperature: 98.1 F Urine Results Urine Protein: Negative Urine Ketones: Negative Urine Glucose: Negative Urine Blood: Negative NST Information Date on Monitor: 11/21/23 Time on Monitor: 12:33 Date off Monitor: 11/21/23 Time off Monitor: 13:02 Total Time on Monitor: 29 NST Interventions: PO Hydration Contraction Frequency: 0 NST Evaluation Patient States Movement: Present FHR Baseline: 130 Variability: Moderate 6-25 bpm Accelerations: 15x15 Decelerations: None NST Results: Reactive Note Ultrasound Done: N/A. NST Note Note: NST is reactive and reassuring. Has induction scheduled for 11/23/23. NST Reviewed and Verified by: Chloé Barnes
[2023-11-21 13:28] VITALS: BP 139/85; PULSE 75; TEMP 36.7
== END 2023-11-21 13:13 ==
LOC: BCD 08:40 → OBS 12:26
PROVIDERS: PCP Student in an Organized Health Care Education/Training Program; Visit Provider Advanced Practice Midwife
DX: Z3A.38 38 weeks gestation of pregnancy (principal); O10.013 Pre-existing essential hypertension complicating pregnancy, third trimester
CPT/HCPCS: 59025

== ENCOUNTER 2023-11-23 08:10 | Inpatient (IN) | payer OTHER, SELFPAY ==
[2023-11-23] VITALS (12 sets, daily range): BP systolic 121–152; BP diastolic 68–91; PULSE 70–82; RESP 17; TEMP 35.9–37; O2SAT 99
[2023-11-23] MEDS: miSOPROStol 25 MCG TAB 50 MCG PO ×4 (09:24→21:20)
--- NOTE | 2023-11-23 09:58 | W.OBNST ---
Date of service: 11/23/23 Time of Service: 09:59 NST Evaluation Reason for NST Reasons for Nonstress Test: GESTATIONAL HYPERTENSION Gestational Age Gestational Age in Weeks and Days: 38 Weeks and 3Days Test and Monitor Explained Test/Monitor Explained: Test Explained, Monitor Explained and Patient Verbalized Understanding Vital Signs Blood Pressure: 141/84 Pulse: 82 Temperature: 96.6 F Urine Results Urine Protein: Negative Urine Ketones: Negative Urine Glucose: Negative Urine Blood: Negative NST Information Date on Monitor: 11/23/23 Time on Monitor: 08:50 Date off Monitor: 11/23/23 Time off Monitor: 09:24 Total Time on Monitor: 34 NST Interventions: PO Hydration Contraction Frequency: 0 NST Evaluation Patient States Movement: Present FHR Baseline: 140 Variability: Moderate 6-25 bpm Accelerations: 15x15 Decelerations: None NST Results: Reactive Note Ultrasound Done: N/A. NST Note Note: Mallory is here for induction of labor due to chronic hypertension. Reactive nST NST Reviewed and Verified by: Chloé Dawn
--- NOTE | 2023-11-23 10:00 | HPE_ITS ---
Date of service: 11/23/23 Time of Service: 10:00 Assessment and Plan Assessment and plan (1) Encounter for induction of labor: Status: Acute Assessment and plan: Reviewed options for induction with Mallory and her partner. We will proceed with cervical ripening with misoprostol PO per protocol and that was ordered. Anticipate (2) Gestational hypertension: Status: Acute Assessment and plan: BP 141/84. preeclampsia labs drawn. Will continue to assess and administer labetalol 100 mg BID OB-HPI Labor/Delivery History of Present Illness Reason for Visit: IOL Chief Complaint: Other (hypertension). LEE ANN Calculator Estimated Delivery Date Method Current WG Current Estimate 12/04/23 LMP (Certain) 38w 3d Other Estimates 12/07/23 Ultrasound #1 38w 0d Comments: Mallory is here for induction of labor for chronic hypertension. History of Present Expected Delivery Route/Plan - CNM FOB - [facility] Lord (2nd baby together) BB no circ GBS negative Would like to try nitrous oxide and the tub. Specific Issues/Plan 1. AMA - offered level 2 US- Nml Panorama, AFP declined. CF previously negative. 1a. Level 2 scan @ [facility]=nml. MFM: repeat scan at 32-24 wks, twice wkly NST @ 37 wks, consider IOL 8-39 wks due to hypertension and AMA 2. Hx episode of HTN which resolved (no meds), hx of pre-eclampsia - ASA daily @ 12 wks recommended. 24-hour urine - unable to calculate due to low protein 2a. Labs for elevated BP 08/31, results nml 2b. BP elevated - preeclampsia screen WNL 09/30/23, weekly visits and monthly growth US recommended and preeclampsia screen repeated -P/C ratio 0.19 2c. Labetalol 100 mg BID started 10/21. Weekly NST at 33 weeks. IOL at 38-39 wks on 11/23/23. 3. Tandem Nursing. Stopped @ 24 wks 4. Flu vaccine given 08/31, desires TDAP 5. Covid infection 10/27 PFSH All Active Problems (Updated 11/23/23 @ 10:03 by Chloé Dawn CNM) Encounter for induction of labor (Acute) Gestational hypertension (Acute) History of anaphylaxis (Acute) Epi refilled, 04/24/23. Hx: saw [facility] post ED in [place], (04/16/23). She presented with itching, facial burning, red rash, N&V and throat fullness. Cause of the reaction was not known. She said symptoms started when she was eating a fish sandwich and started with itching and burning in her face that then migrated throughout her body. She vomited several times. There was no SOB or airway involvement. Sees [facility] allergy clinic last note 07/21/23 Metatarsalgia, right foot (Acute) Advanced maternal age (AMA) in (Acute) 05/26/23 Allergy (Acute) Vaginal bleeding affecting early (Acute) Stress incontinence in female (Acute) Mild, 2' cough. 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 expected to be controlled with activity/exercise [and less/no overnight nursing shifts]. Family history of breast cancer Family hx of hypertension History of severe pre-eclampsia Surgical History [place] teeth removed Family History Father Hypertension Paternal Grandmother Cancer Breast cancer Maternal Grandfather Cancer Sister Mental illness in member of household Mother Hypertension Brother Asthma Paternal Grandfather Alzheimer disease Social History Smoking/Tobacco Use Status: Never Smoking risk assessment performed?: Yes Alcohol Intake: former Drug use: Never Substance use type: does not use Adopted: No Caregiver/Support person: No Foster care: No Household members: significant other and children Housing: house Number of Children: 1 number of grandchildren: 0 Communication Needs: None Education Level: college Details: Bachelor's Degree 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 Pets and animals: Yes (1) Pets and animals: dog(s) Sexually active: Yes Do you think of yourself as: straight/heterosexual Current gender identity: female What is your relationship status?: living with partner How often do you talk on the phone with friends or family?: three or more times per week How often do you get together with friends or relatives?: once per week Do you belong to any clubs or organized social groups?: yes Panel score (0-1 are the most socially isolated patients): 3 What type of physical activity do you participate in: walking and other Details: hiking Duration: 30-45 minutes/day Frequency: 5-6 times per week Special anjali needs: No Seatbelt use: always Helmet use: Yes Helmet use: always Drive intox or ride w/intox shuttle van driver: No Do you feel safe at home: Yes Do you feel safe in your relationship?: Yes History History 2 Para 1 Hx # Term Pregnancies 1 Multiple births 0 Hx # Pregnancies 0 Ectopic pregnancies 0 AB induced 0 Hx Number of Living Children 1 AB spontaneous 0 Past Pregnancies Del. Date GA/Weeks # Preg Succ Route Wgt Sex Labor Lgth Anesth esia Location [facility] 07/20/21 38 No Yes vaginal 8 lb Male 12 hr active la bor, after 3 days of labor, PP readmit for [facility] ([place]) Delivery Date: 07/20/21 Last Updated by: Chloé Dawn, [facility], [place], IOL due to preeclampsia, readmission post for treatment with Magso4. Discharged on procardia post . Switched to labetalol and hydralazine in 11/2021 by PCP. Discontinue meds after weaning down 03/2022 Meds Allergies and Home Medications Allergies Allergy/AdvReac Type Severity Reaction Status Date / Time bee venom protein (honey bee) Allergy Intermediate Verified 11/18/23 08:29 Home Medications Medication Instructions Recorded Confirmed Type prenat.vits,ephraim,smm-wkax-uwvyv 1 tab PO DAILY 04/06/23 11/23/23 History famotidine 10 mg tablet (Pepcid AC) 10 mg PO PRN s/s related to 04/21/23 11/23/23 History allergic reaction epinephrine 0.3 mg/0.3 mL 0.3 mg (0.3 mL) IM ONCE #2 ea 04/30/23 11/23/23 Rx injection, auto-injector (EpiPen 2-Wesley) aspirin 81 mg tablet,delayed 81 mg PO DAILY 06/15/23 11/23/23 History release loratadine 10 mg tablet (Claritin) See Rx Instructions PO DAILY PRN 07/07/23 11/23/23 History allergic symptoms/pruritus labetalol 100 mg tablet 100 mg PO BID #60 tabs 10/20/23 11/23/23 Rx Exam Physical Exam Vital signs: Temp Pulse Resp BP Pulse Ox 96.7 F L 82 17 141/84 H 99 11/23/23 09:00 11/23/23 09:00 11/23/23 09:00 11/23/23 09:00 11/23/23 09:00 Vital Signs Reviewed: Yes Constitutional Constitutional: no acute distress Detailed Labor and Delivery Exam Dilation: 1 Effacement (%): 50 station: -2 Cervix position: mid Consistency: medium Morgan Score: Cervical Points Exam 0 1 2 3 Dilation Closed 1-2cm 3-4 cm 5-6cm Effacement 0-30% 40-50% 60-70% 80% Consistency Firm Medium Soft Station -3 -2 -1,0 +1,+2 Position Posterior Mid Anterior MORGAN Score(Cervical Ripeness Score): 5 Amniotic Membrane Status: Intact Contraction Frequency(min): occasional Contraction Intensity: Mild Fetus A Heart Rate Baseline: 140 Monitor Accelerations: 15 X 15 Monitor Decelerations: None Variability: Moderate (6-25 BPM) Presentation: Cephalic Categories: Category I Neck Exam Neck Exam: Normal Respiratory Exam Respiratory Exam: Normal Cardiovascular Exam Cardiovascular Exam: Normal Abdominal Exam Abdominal Exam: Normal Exam Exam: Normal Detailed Exam External: Present normal urethra appearance Perineum Description: Normal Extremities Exam Extremities Exam: Normal Skin Exam Skin Exam: Normal Psychiatric Exam Psychiatric Exam: Normal Results Results Group Beta Strep: Negative Blood Type: O+ Rubella Status: Immune Varicella Immunity: Immune Risk Assessment Risk for Shoulder Dystocia Historical/Initial OB: NEGATIVE FOR: Pelvic Abnormality, Pre- BMI>30, Previous Shoulder Dystocia or Previous Macrosomia 40 Weeks: POSTIVE FOR: Maternal Weight Gain >40lb Increased Risk?: Yes Risk for Pre-Eclampsia Daily Dose ASA Indicated: Yes Date Initiated/Initials: KM Yes, if one or more: POSTIVE FOR: Hx Pre-E/Gest HTN Yes, if 2 or more: POSITIVE FOR: Age>= 35 yrs Risk for Post- Hemorrhage Initial: NEGATIVE FOR: Multiple Gestation, Previous PPH, Known Clotting Deficiency, Grand Multiparity or Anticoagulation 36 Weeks: POSITIVE FOR: Gestational HTN or Pre-E 40 Weeks: POSITIVE FOR: Gestation HTN or Pre-E At Risk?: Yes Risks Reviewed Risks Reviewed Upon Admission: Yes
[2023-11-23 10:03] LABS: MCH 29.3 pg (27.0-33.0); MCHC 33.3 % (32.0-36.0); MCV 88 fL (80-95); MPV 11.2 fL (8.0-11.0); Platelet Count 203 10^3/uL (130-400); RBC 4.09 10^6/uL (3.93-5.22); RDW 12.4 % (11.7-14.6); RDW-SD 39.8 fL
[2023-11-23 10:19] LABS: ALT 27 U/L (14-59); AST 22 U/L (15-37); Albumin 2.6 g/dL (3.4-5.0); Alkaline Phosphatase 138 U/L (46-116); BUN 10 mg/dL (7-18); Bilirubin, Total 0.2 mg/dL (0.2-1.0); CREATININE 0.6 mg/dL (0.55-1.02); Calcium 9.2 mg/dL (8.5-10.1); Chloride 101 mmol/L (98-107); Estimated GFR 115.57 (mL/min/1.73m2); Glucose 87 mg/dL (74-106); Potassium 3.5 mmol/L (3.5-5.1); Sodium 136 mmol/L (136-145); Total Protein 6.9 g/dL (6.4-8.2); Uric Acid 4.8 mg/dL (2.6-6.0)
[2023-11-23] MEDS: Labetalol 100 MG TAB PO (19:32)
--- NOTE | 2023-11-23 23:09 | W.PM.OBNL1 ---
Date of service: 11/23/23 Time of Service: 17:30 Informed Consent Informed Consent: Induction of Labor Pelvic Exam Dilation: 2 Effacement (%): 50 station: -2 Cervix Position: mid Consistency: medium Vaginal Exam Presentation: Vertex Contractions Monitor Mode: External Contraction Frequency(min): every 3 minutes Intensity: Mild Fetus A Monitor: External (US) Heart Rate Baseline: 140 Variability: Moderate (6-25 BPM) Categories: Category I FHR Rhythm: Regular Characteristics: Normal Accelerations: 15 X 15 Decelerations: None Assessment and Plan Assessment and plan (1) Encounter for induction of labor: Status: Acute Assessment and plan: Discussed cervical ripening balloon for cervical ripening. Mallory declines at this time. Rest encouraged. Reassess for cervical change when appropriate. Comfort measurs Objective Abnormal lab results 11/23/23 Range/Units 09:52 WBC 13.00 H (4.4-10.8) 10^3/uL MPV 11.2 H (8.0-11.0) fL Anion Gap 13.0 H (3-11) mmol/L Alkaline Phosphatase 138 H (46-116) U/L Albumin 2.6 L (3.4-5.0) g/dL Temp Pulse Resp BP Pulse Ox 98.6 F 70 17 133/75 99 11/23/23 21:12 11/23/23 21:12 11/23/23 19:42 11/23/23 21:12 11/23/23 19:42 Laboratory Results WBC 13.00 10^3/uL (4.4-10.8) H 11/23/23 09:52 RBC 4.09 10^6/uL (3.93-5.22) 11/23/23 09:52 Hgb 12.0 g/dL (11.2-15.7) 11/23/23 09:52 Hct 36.0 % (36.0-46.0) 11/23/23 09:52 MCV 88 fL (80-95) 11/23/23 09:52 MCH 29.3 pg (27.0-33.0) 11/23/23 09:52 MCHC 33.3 % (32.0-36.0) 11/23/23 09:52 RDW 12.4 % (11.7-14.6) 11/23/23 09:52 Plt Count 203 10^3/uL (130-400) 11/23/23 09:52 MPV 11.2 fL (8.0-11.0) H 11/23/23 09:52 Sodium 136 mmol/L (136-145) 11/23/23 09:52 Potassium 3.5 mmol/L (3.5-5.1) 11/23/23 09:52 Chloride 101 mmol/L (98-107) 11/23/23 09:52 Carbon Dioxide 22.0 mmol/L (21.0-32.0) 11/23/23 09:52 Anion Gap 13.0 mmol/L (3-11) H 11/23/23 09:52 BUN 10 mg/dL (7-18) 11/23/23 09:52 Creatinine 0.6 mg/dL (0.55-1.02) 11/23/23 09:52 Est GFR (CKD-EPI 2020) 115.57 (mL/min/1.73m2) 11/23/23 09:52 Glucose 87 mg/dL (74-106) 11/23/23 09:52 Uric Acid 4.8 mg/dL (2.6-6.0) 11/23/23 09:52 Calcium 9.2 mg/dL (8.5-10.1) 11/23/23 09:52 Total Bilirubin 0.2 mg/dL (0.2-1.0) 11/23/23 09:52 AST 22 U/L (15-37) 11/23/23 09:52 ALT 27 U/L (14-59) 11/23/23 09:52 Alkaline Phosphatase 138 U/L (46-116) H 11/23/23 09:52 Total Protein 6.9 g/dL (6.4-8.2) 11/23/23 09:52 Albumin 2.6 g/dL (3.4-5.0) L 11/23/23 09:52 Patient ABO/Rh O Positive 11/23/23 09:52 Antibody Screen NEGATIVE 11/23/23 09:52 Subjective Patient Reports: No new Complaints Interval history since last seen: Mallory has received 2 doses of misoprostol. She iis experiencing mild, regular contractions. She is comfortable Results Hemoglobin/Hematocrit: Hgb 12.0 g/dL (11.2-15.7) 11/23/23 09:52 Hct 36.0 % (36.0-46.0) 11/23/23 09:52 Abnormal Lab Findings: Abnormal Labs 11/23/23 09:52 WBC 13.00 H MPV 11.2 H Anion Gap 13.0 H Alkaline Phosphatase 138 H Albumin 2.6 L
--- NOTE | 2023-11-23 23:12 | W.PM.OBNL1 ---
Date of service: 11/23/23 Time of Service: 23:12 Informed Consent Informed Consent: Induction of Labor Pelvic Exam Comments: exam deferred Contractions Monitor Mode: External Contraction Frequency(min): every 3-4 Intensity: Mild/Moderate Fetus A Monitor: External (US) Variability: Moderate (6-25 BPM) Categories: Category I FHR Rhythm: Regular Accelerations: 15 X 15 Decelerations: None Assessment and Plan Assessment and plan (1) Encounter for induction of labor: Status: Acute Assessment and plan: Mallory requested to sleep overnight and will resume cervical ripening in the morning. Declined balloon. Will provide ambien PO PRN. Objective Abnormal lab results 11/23/23 Range/Units 09:52 WBC 13.00 H (4.4-10.8) 10^3/uL MPV 11.2 H (8.0-11.0) fL Anion Gap 13.0 H (3-11) mmol/L Alkaline Phosphatase 138 H (46-116) U/L Albumin 2.6 L (3.4-5.0) g/dL Temp Pulse Resp BP Pulse Ox 98.6 F 70 17 133/75 99 11/23/23 21:12 11/23/23 21:12 11/23/23 19:42 11/23/23 21:12 11/23/23 19:42 Laboratory Results WBC 13.00 10^3/uL (4.4-10.8) H 11/23/23 09:52 RBC 4.09 10^6/uL (3.93-5.22) 11/23/23 09:52 Hgb 12.0 g/dL (11.2-15.7) 11/23/23 09:52 Hct 36.0 % (36.0-46.0) 11/23/23 09:52 MCV 88 fL (80-95) 11/23/23 09:52 MCH 29.3 pg (27.0-33.0) 11/23/23 09:52 MCHC 33.3 % (32.0-36.0) 11/23/23 09:52 RDW 12.4 % (11.7-14.6) 11/23/23 09:52 Plt Count 203 10^3/uL (130-400) 11/23/23 09:52 MPV 11.2 fL (8.0-11.0) H 11/23/23 09:52 Sodium 136 mmol/L (136-145) 11/23/23 09:52 Potassium 3.5 mmol/L (3.5-5.1) 11/23/23 09:52 Chloride 101 mmol/L (98-107) 11/23/23 09:52 Carbon Dioxide 22.0 mmol/L (21.0-32.0) 11/23/23 09:52 Anion Gap 13.0 mmol/L (3-11) H 11/23/23 09:52 BUN 10 mg/dL (7-18) 11/23/23 09:52 Creatinine 0.6 mg/dL (0.55-1.02) 11/23/23 09:52 Est GFR (CKD-EPI 2020) 115.57 (mL/min/1.73m2) 11/23/23 09:52 Glucose 87 mg/dL (74-106) 11/23/23 09:52 Uric Acid 4.8 mg/dL (2.6-6.0) 11/23/23 09:52 Calcium 9.2 mg/dL (8.5-10.1) 11/23/23 09:52 Total Bilirubin 0.2 mg/dL (0.2-1.0) 11/23/23 09:52 AST 22 U/L (15-37) 11/23/23 09:52 ALT 27 U/L (14-59) 11/23/23 09:52 Alkaline Phosphatase 138 U/L (46-116) H 11/23/23 09:52 Total Protein 6.9 g/dL (6.4-8.2) 11/23/23 09:52 Albumin 2.6 g/dL (3.4-5.0) L 11/23/23 09:52 Patient ABO/Rh O Positive 11/23/23 09:52 Antibody Screen NEGATIVE 11/23/23 09:52 Subjective Patient Reports: No new Complaints Interval history since last seen: Coping well with contractions. ambulating for comfort and resting. Results Hemoglobin/Hematocrit: Hgb 12.0 g/dL (11.2-15.7) 11/23/23 09:52 Hct 36.0 % (36.0-46.0) 11/23/23 09:52 Abnormal Lab Findings: Abnormal Labs 11/23/23 09:52 WBC 13.00 H MPV 11.2 H Anion Gap 13.0 H Alkaline Phosphatase 138 H Albumin 2.6 L
[2023-11-24] VITALS (24 sets, daily range): BP systolic 124–188; BP diastolic 67–104; PULSE 71–93; RESP 14; TEMP 36.2–37
[2023-11-24] MEDS: Zolpidem 5 MG TAB 10 MG PO (00:40)
--- NOTE | 2023-11-24 05:34 | W.PM.OBNL1 ---
Date of service: 11/24/23 Time of Service: 05:35 Informed Consent Informed Consent: Induction of Labor Pelvic Exam Comments: cervical exam offered and declined. Contractions Monitor Mode: External Contraction Frequency(min): irregular Contraction Duration(sec): 45-60 Intensity: Mild Fetus A Monitor: External (US) Heart Rate Baseline: 130 Presentation: Cephalic Variability: Moderate (6-25 BPM) Categories: Category I Accelerations: 15 X 15 Decelerations: None Amniotic Membrane Status: Intact Assessment and Plan Assessment and plan (1) Encounter for induction of labor: Status: Acute Assessment and plan: Discussed plan for today. Mallory would like to have another dose of misoprostol PO and go back to sleep. I will assess for cervical change when she awakes. Anticipate . Objective Abnormal lab results 11/23/23 Range/Units 09:52 WBC 13.00 H (4.4-10.8) 10^3/uL MPV 11.2 H (8.0-11.0) fL Anion Gap 13.0 H (3-11) mmol/L Alkaline Phosphatase 138 H (46-116) U/L Albumin 2.6 L (3.4-5.0) g/dL Temp Pulse Resp BP Pulse Ox 98.6 F 76 17 125/79 99 11/24/23 05:13 11/24/23 05:13 11/23/23 19:42 11/24/23 05:13 11/23/23 19:42 Laboratory Results WBC 13.00 10^3/uL (4.4-10.8) H 11/23/23 09:52 RBC 4.09 10^6/uL (3.93-5.22) 11/23/23 09:52 Hgb 12.0 g/dL (11.2-15.7) 11/23/23 09:52 Hct 36.0 % (36.0-46.0) 11/23/23 09:52 MCV 88 fL (80-95) 11/23/23 09:52 MCH 29.3 pg (27.0-33.0) 11/23/23 09:52 MCHC 33.3 % (32.0-36.0) 11/23/23 09:52 RDW 12.4 % (11.7-14.6) 11/23/23 09:52 Plt Count 203 10^3/uL (130-400) 11/23/23 09:52 MPV 11.2 fL (8.0-11.0) H 11/23/23 09:52 Sodium 136 mmol/L (136-145) 11/23/23 09:52 Potassium 3.5 mmol/L (3.5-5.1) 11/23/23 09:52 Chloride 101 mmol/L (98-107) 11/23/23 09:52 Carbon Dioxide 22.0 mmol/L (21.0-32.0) 11/23/23 09:52 Anion Gap 13.0 mmol/L (3-11) H 11/23/23 09:52 BUN 10 mg/dL (7-18) 11/23/23 09:52 Creatinine 0.6 mg/dL (0.55-1.02) 11/23/23 09:52 Est GFR (CKD-EPI 2020) 115.57 (mL/min/1.73m2) 11/23/23 09:52 Glucose 87 mg/dL (74-106) 11/23/23 09:52 Uric Acid 4.8 mg/dL (2.6-6.0) 11/23/23 09:52 Calcium 9.2 mg/dL (8.5-10.1) 11/23/23 09:52 Total Bilirubin 0.2 mg/dL (0.2-1.0) 11/23/23 09:52 AST 22 U/L (15-37) 11/23/23 09:52 ALT 27 U/L (14-59) 11/23/23 09:52 Alkaline Phosphatase 138 U/L (46-116) H 11/23/23 09:52 Total Protein 6.9 g/dL (6.4-8.2) 11/23/23 09:52 Albumin 2.6 g/dL (3.4-5.0) L 11/23/23 09:52 Patient ABO/Rh O Positive 11/23/23 09:52 Antibody Screen NEGATIVE 11/23/23 09:52 Objective Narrative Objective Narrative: BP 125/79. Taking labetalol 100 mg PO BID. Subjective Patient Reports: No new Complaints Interval history since last seen: Mallory slept well with ambien PO and awoke with no contractions that she is aware of. Results Hemoglobin/Hematocrit: Hgb 12.0 g/dL (11.2-15.7) 11/23/23 09:52 Hct 36.0 % (36.0-46.0) 11/23/23 09:52 Abnormal Lab Findings: Abnormal Labs 11/23/23 09:52 WBC 13.00 H MPV 11.2 H Anion Gap 13.0 H Alkaline Phosphatase 138 H Albumin 2.6 L
[2023-11-24] MEDS: miSOPROStol 25 MCG TAB 50 MCG PO (05:41)
[2023-11-24] MEDS: Labetalol 100 MG TAB PO ×3 (07:44→19:44)
[2023-11-24] MEDS: Lactated Ringers 500 ML IV (12:35)
--- NOTE | 2023-11-24 15:38 | W.PM.OBNL1 ---
Date of service: 11/24/23 Time of Service: 15:38 Informed Consent Informed Consent: Induction of Labor Pelvic Exam Dilation: 3 Effacement (%): 75 station: -2 Cervix Position: mid Consistency: soft Vaginal Exam Presentation: Cephalic Contractions Monitor Mode: External Contraction Frequency(min): every 2-4 Contraction Duration(sec): 40-60 Intensity: Moderate Fetus A Monitor: External (US) Heart Rate Baseline: 130 Variability: Moderate (6-25 BPM) Categories: Category I FHR Rhythm: Regular Accelerations: 15 X 15 Decelerations: None Amniotic Membrane Status: Ruptured Assessment and Plan Assessment and plan (1) Encounter for induction of labor: Status: Acute Assessment and plan: heart rate pattern improved after IV bolus. Off the monitor to ambulate. Discussed pitocin augmentation with Mallory and she will consider. Objective Temp Pulse Resp BP Pulse Ox 98.4 F 77 17 124/67 99 11/24/23 07:49 11/24/23 15:32 11/23/23 19:42 11/24/23 15:32 11/23/23 19:42 Laboratory Results WBC 13.00 10^3/uL (4.4-10.8) H 11/23/23 09:52 RBC 4.09 10^6/uL (3.93-5.22) 11/23/23 09:52 Hgb 12.0 g/dL (11.2-15.7) 11/23/23 09:52 Hct 36.0 % (36.0-46.0) 11/23/23 09:52 MCV 88 fL (80-95) 11/23/23 09:52 MCH 29.3 pg (27.0-33.0) 11/23/23 09:52 MCHC 33.3 % (32.0-36.0) 11/23/23 09:52 RDW 12.4 % (11.7-14.6) 11/23/23 09:52 Plt Count 203 10^3/uL (130-400) 11/23/23 09:52 MPV 11.2 fL (8.0-11.0) H 11/23/23 09:52 Sodium 136 mmol/L (136-145) 11/23/23 09:52 Potassium 3.5 mmol/L (3.5-5.1) 11/23/23 09:52 Chloride 101 mmol/L (98-107) 11/23/23 09:52 Carbon Dioxide 22.0 mmol/L (21.0-32.0) 11/23/23 09:52 Anion Gap 13.0 mmol/L (3-11) H 11/23/23 09:52 BUN 10 mg/dL (7-18) 11/23/23 09:52 Creatinine 0.6 mg/dL (0.55-1.02) 11/23/23 09:52 Est GFR (CKD-EPI 2020) 115.57 (mL/min/1.73m2) 11/23/23 09:52 Glucose 87 mg/dL (74-106) 11/23/23 09:52 Uric Acid 4.8 mg/dL (2.6-6.0) 11/23/23 09:52 Calcium 9.2 mg/dL (8.5-10.1) 11/23/23 09:52 Total Bilirubin 0.2 mg/dL (0.2-1.0) 11/23/23 09:52 AST 22 U/L (15-37) 11/23/23 09:52 ALT 27 U/L (14-59) 11/23/23 09:52 Alkaline Phosphatase 138 U/L (46-116) H 11/23/23 09:52 Total Protein 6.9 g/dL (6.4-8.2) 11/23/23 09:52 Albumin 2.6 g/dL (3.4-5.0) L 11/23/23 09:52 Patient ABO/Rh O Positive 11/23/23 09:52 Antibody Screen NEGATIVE 11/23/23 09:52 Subjective Patient Reports: New Complaints Interval history since last seen: stronger contractions Results Hemoglobin/Hematocrit: Hgb 12.0 g/dL (11.2-15.7) 11/23/23 09:52 Hct 36.0 % (36.0-46.0) 11/23/23 09:52 Abnormal Lab Findings: Abnormal Labs 11/23/23 09:52 WBC 13.00 H MPV 11.2 H Anion Gap 13.0 H Alkaline Phosphatase 138 H Albumin 2.6 L
[2023-11-24] MEDS: Oxytocin 10 UNITS/ML VIAL IM (19:13)
[2023-11-24] MEDS: Lidocaine 1% Multi-Dose 20 ML VIAL IJ (19:20)
[2023-11-24] MEDS: Dibucaine 1% 28 GM TUBE TP (20:39)
[2023-11-24] MEDS: Hamamelis Leaf/Glycerin 100 EACH BOX PR (20:39)
--- NOTE | 2023-11-24 21:01 | OBVDS_ITS ---
Date of service: 11/24/23 Time of Service: 21:08 OB Labor/ Delivery Information Baby A Delivery Delivery Method: Spontaneaous Presentation: Cephalic Cephalic Position: Vertex Vertex Position: Left Occipital Anterior Cord Description-Baby A: 3 Vessels and Nuchal Cord (loose) Amniotic Fluid: Clear Estimated Blood Loss: 250 Delivery Outcome: Liveborn Transferred: Remains with Mother Note: Mallory began experiencing severe discomfort and used position changes and sat on toilet to relieve discomfort. BP 160-170/90s. She took PO labetalol and vomited her tablet. Dr To was notified of elevated BP and came to the room. Upon Dr To's arrival, Mallory began experiencing an urge to bear down and was found to be 9 cms. She moved to bed on her hands and knees, FHTs 130s during first stage of labor. FHTs 130s in second stage. She progressed to full dilation and began pushing. Second stage huddle was done. Spontaneous delivery of male infant delivered in GRANT position. Baby was placed on mother's abdomen and dried and stimulated. Spontaneous cry. Cord was clamped and cut by the baby's father after it stopped pulsing. The placenta delivered spontaneously and appears to by intact with a three vessel cord. Pitocin 10 units was administered before delivery of the placenta. The perineum was inspected and a small 1st degree laceration was repaired . The baby did breastfeed. After delivery, Mother and baby and father of the baby were stable and bonding well in the delivery room and there were no complications. PO labetalol was adminstered after delivery and BP was WNL. Providers Nurse Director Of Email Marketing: Chloé Dawn Nurse: Nesha Johnson Nurse: Raúl Storm Labor/Delivery Information Number of Babies in Womb: 1 Steroids Given: None Reason Steroids Not Administered: N/A Group Beta Strep: Negative Rubella Status: Immune Blood Type: O+ Varicella Immunity: Immune Medication in Delivery: Nitrous Born En Route: No Maternal Complications: None Shoulder Dystocia: No Stages of Labor Onset of Labor Date: 11/24/23 Complete Dilatation Date: 11/24/23 ROM Baby A: 11/24/23 ROM Baby A: 08:35 ROM Total Time- Baby A: [id number] Delivery Date-Baby A: 11/24/23 Infant Delivery Time-Baby A: 19:08 Placenta Delivery Date-Baby A: 11/24/23 Placenta Delivery Time-Baby A: 19:24 Labor-Stage 3 Duration: 16 minutes Placenta Cultured: No Placenta Status: Delivered Baby A Infant Gender: Male Gestational Status: Early Term (37-38.6 wks) Gestational Age in Weeks/Days: 38 Weeks and 4 Days Score-1 Minute Interval(Baby A) Heart Rate-1 minute: 100 BPM or Greater Respiratory Effort- 1 minute: Spontaneous/Strong Cry Muscle Tone-1 minute: Active Movement Reflex Response-1 minute: Prompt Response Color-1 minute: Pallor or Cyanosis Total Score-1 minute: 8 Score-5 Minute Interval(Baby A) Heart Rate- 5 minute: 100 BPM or Greater Respiratory Effort-5 minute: Spontaneous/Strong Cry Muscle Tone-5 minute: Active Movement Reflex Response-5 minute: Prompt Response Color-5 minute: Bluish Hands or Feet Total Score- 5 minute: 9
[2023-11-24] MEDS: Ibuprofen 600 MG TAB PO (21:32)
[2023-11-25 00:47] VITALS: BP 138/83; PULSE 68; RESP 18; TEMP 36.2
[2023-11-25] MEDS: Ibuprofen 600 MG TAB PO (03:48)
[2023-11-25 03:50] VITALS: BP 128/79; PULSE 72; RESP 16
[2023-11-25 08:05] VITALS: BP 137/84; PULSE 74; RESP 16; TEMP 36.7; O2SAT 99
[2023-11-25] MEDS: Labetalol 100 MG TAB PO ×2 (09:45→20:45)
[2023-11-25 16:25] VITALS: BP 119/82; PULSE 68; RESP 16; TEMP 36.4; O2SAT 98
--- NOTE | 2023-11-25 20:40 | OBPPV_ITS ---
Date of service: 11/25/23 Time of Service: 20:44 Assessment and Plan Assessment and plan (1) Term of male : Status: Acute Assessment and plan: Caring for baby independently. Pain is managed well with oral analgesics. Voiding without difficulty. well. A - stable mother and baby , Post day 1 P - Discharge to home tomorrow. Routine post instructions. [facility] (2) Gestational hypertension: Status: Acute Assessment and plan: BP has been WNL. She was instructed to continue labetalol 100 mg BID until 6 weeks post . Subjective Subjective Patient comments: No complaints baby status: Doing well and Nursing well Elverta feeding status: Exclusively breast feeding Exam Physical Exam Vital signs: Temp Pulse Resp BP Pulse Ox 97.5 F L 68 16 119/82 98 11/25/23 16:25 11/25/23 16:25 11/25/23 16:25 11/25/23 16:25 11/25/23 16:25 Vital Signs Reviewed: Yes Constitutional Constitutional: no acute distress Respiratory Exam Respiratory Exam: Normal Cardiovascular Exam Cardiovascular Exam: Normal Fundal Exam Fundus: Below Umbilicus and Firm Extremities Exam Extremity Exam: Normal Psychiatric Exam Psychiatric Exam: Normal Results Hemoglobin/Hematocrit: Hgb 12.0 g/dL (11.2-15.7) 11/23/23 09:52 Hct 36.0 % (36.0-46.0) 11/23/23 09:52 Abnormal Lab Findings: Abnormal Labs 11/23/23 09:52 WBC 13.00 H MPV 11.2 H Anion Gap 13.0 H Alkaline Phosphatase 138 H Albumin 2.6 L
[2023-11-25 20:45] VITALS: BP 147/91
[2023-11-25 21:56] VITALS: BP 120/75; PULSE 61
[2023-11-26] MEDS: Ibuprofen 600 MG TAB PO ×2 (02:03→08:14)
[2023-11-26] MEDS: Acetaminophen 325 MG TAB 650 MG PO ×2 (02:03→08:14)
[2023-11-26 08:05] VITALS: BP 152/95; PULSE 68; RESP 16; TEMP 36.6
[2023-11-26] MEDS: Labetalol 100 MG TAB PO (08:14)
--- NOTE | 2023-11-26 08:23 | W.PM.OBDISCH ---
Date of service: 11/26/23 Time of Service: 08:24 DS: Diagnosis Discharge Diagnosis (1) Term of male : Status: Acute Asessment and Plan: 1. Normal PP course, discharge to home today and RTO 2 and 6 weeks PP, 2, Reviewed PP warning signs and when/how to call CNM PP. 3. Considering Vasectomy for contraception 4. Patient has BP cuff at home and will call with any elevations. (2) Gestational hypertension: Status: Acute Asessment and Plan: 1. Continue with Labetalol PO as scheduled and to call with elevations as directed. Has BP cuff at home. Discharge Plan Disposition Patient Disposition: Home Condition: Good Discharge Details Reason For Visit: IOL Admit Date/Time: 11/23/23 08:10 Admit Provider: Chloé Dawn Attending Provider: Chloé Dawn Primary Care Provider: Savanna Browne Hospital Course Hospital Course: NVD after induction of labor due to GHTN on meds. Normal PP course with some BP elevations that are controlled on Labetalol 100 mg twice daily. Breast feeding well. Home Meds and New Rx's Prescriptions: Continued prenat.vits,ephraim,[id number] Tablet 1 tab PO DAILY labetalol 100 mg tablet 100 mg PO BID Qty: 60 7RF famotidine [Pepcid AC] 10 mg tablet 10 mg PO PRN epinephrine [EpiPen 2-Wesley] 0.3 mg/0.3 mL auto-injector 0.3 mg IM ONCE Qty: 2 1RF Rx Instructions: as a single dose; may repeat once loratadine [Claritin] 10 mg tablet See Rx Instructions PO DAILY PRN (Reason: allergic symptoms/pruritus) Rx Instructions: 1 tab every morning. Repeat in the afternoon or evening if having increased pruritus orally daily PRN; Discontinued aspirin 81 mg tablet,delayed release (DR/EC) 81 mg PO DAILY Rx Instructions: every other day pt takes 2 81 mg Discharge Instructions Instructions: Depression (GEN) Stand Alone Forms: BC Instructions, BC Post Vaginal Deliver Activity:: Activity as Tolerated Equipment/Supplies:: No Equipment Needed Diet:: As Tolerated Discharge Orders Discharge Orders: Discharge Order (Routine); Ordered 11/26/23 Ordered By: Chloé Barnes OB:DS Summary Summary Vaginal Delivery Method: Spontaneaous Laceration Description: Perineal Laceration Extension: First Degree Contraception Discussed Contraception Discussed: Yes Contraceptive Plan: Vasectomy, [place] Gender-Baby A: Male weight: 7 lb 2 oz Status at Discharge Functional status at discharge: independent ambulation Overall status at discharge: patient is back to baseline Mental Status: mental status grossly normal Speech and Movement: speech and movement normal Mood: congruent mood Affect: normal affect Time Spent with Patient providing and/or coordinating discharge services: Less than 30 minutes Quality:SDOH Health Related Social Needs: No Data to Display Exam Physical Exam Vital signs: Temp Pulse Resp BP Pulse Ox 97.5 F L 61 16 120/75 98 11/25/23 16:25 11/25/23 21:56 11/25/23 16:25 11/25/23 21:56 11/25/23 16:25 Vital Signs Reviewed: Yes Constitutional Constitutional: no acute distress, average body habitus and cooperative HEENT Exam HEENT Exam: Normal Neck Exam Neck Exam: Normal (normal visual inspection) Respiratory Exam Respiratory Exam: Normal Cardiovascular Exam Cardiovascular Exam: Normal Abdominal Exam Abdomen: Other (normal exam) Fundal Exam Fundus: Below Umbilicus and Firm Comment: small lochia noted. KH Rectal Exam Rectal Exam: Not Done Exam Perineum: Intact and Normal Extremities Exam Extremity Exam: Normal (denies calf tenderness) and Full ROM Back/Spine/Pelvis Exam Back Exam: Normal Skin Exam Skin Exam: Normal Neurological Exam Neurological Exam: Normal Psychiatric Exam Psychiatric Exam: Normal PFSH All Active Problems Term of male (Acute) Gestational hypertension (Acute) History of anaphylaxis (Acute) Epi refilled, 04/24/23. Hx: saw [facility] post ED in [place], (04/16/23). She presented with itching, facial burning, red rash, N&V and throat fullness. Cause of the reaction was not known. She said symptoms started when she was eating a fish sandwich and started with itching and burning in her face that then migrated throughout her body. She vomited several times. There was no SOB or airway involvement. Sees [facility] allergy clinic last note 07/21/23 Metatarsalgia, right foot (Acute) Advanced maternal age (AMA) in (Acute) 05/26/23 DH Allergy (Acute) Vaginal bleeding affecting early (Acute) Stress incontinence in female (Acute) Mild, 2' cough. 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 expected to be controlled with activity/exercise [and less/no overnight nursing shifts]. Surgical History [place] teeth removed Family History Father Hypertension Paternal Grandmother Cancer Breast cancer Maternal Grandfather Cancer Sister Mental illness in member of household Mother Hypertension Brother Asthma Paternal Grandfather Alzheimer disease Social History Smoking/Tobacco Use Status: Never Smoking risk assessment performed?: Yes Alcohol Intake: former Drug use: Never Substance use type: does not use Adopted: No Caregiver/Support person: No Foster care: No Household members: significant other and children Housing: house Number of Children: 1 number of grandchildren: 0 Communication Needs: None Education Level: college Details: Bachelor's Degree 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 Pets and animals: Yes (1) Pets and animals: dog(s) Sexually active: Yes Do you think of yourself as: straight/heterosexual Current gender identity: female What is your relationship status?: living with partner How often do you talk on the phone with friends or family?: three or more times per week How often do you get together with friends or relatives?: once per week Do you belong to any clubs or organized social groups?: yes Panel score (0-1 are the most socially isolated patients): 3 What type of physical activity do you participate in: walking and other Details: hiking Duration: 30-45 minutes/day Frequency: 5-6 times per week Special anjali needs: No Seatbelt use: always Helmet use: Yes Helmet use: always Drive intox or ride w/intox wrecker driver: No Do you feel safe at home: Yes Do you feel safe in your relationship?: Yes History History 2 Para 1 Hx # Term Pregnancies 1 Multiple births 0 Hx # Pregnancies 0 Ectopic pregnancies 0 AB induced 0 Hx Number of Living Children 1 AB spontaneous 0 Past Pregnancies Del. Date GA/Weeks # Preg Succ Route Wgt Sex Labor Lgth Anesthesia Location Prov [facility] 07/20/21 38 No Yes vaginal 8 lb Male 12 hr active labor, after 3 days of labor, PP readmit for [facility] ([place]) Delivery Date: 07/20/21 Last Updated by: Chloé Dawn, [facility], [place], IOL due to preeclampsia, readmission post for treatment with Magso4. Discharged on procardia post . Switched to labetalol and hydralazine in 11/2021 by PCP. Discontinue meds after weaning down 03/2022 DS: Data Vitals/I&O Vitals and I&O: Vital Signs Temperature 97.5 F L 11/25/23 16:25 Temperature 96.6 F 11/23/23 09:59 Temperature Source Oral 11/25/23 16:25 Pulse 61 11/25/23 21:56 Pulse 82 11/23/23 09:59 Pulse Rhythm Regular 11/25/23 21:10 Respiratory Rate 16 11/25/23 16:25 Respiratory Depth Normal 11/25/23 21:10 Blood Pressure 120/75 11/25/23 21:56 Blood Pressure 141/84 11/23/23 09:59 Blood Pressure Mean 90 11/25/23 21:56 Pulse Oximetry 98 11/25/23 16:25 Oxygen Delivery Method Room Air 11/23/23 08:33 Oxygen Flow Rate 0 11/23/23 08:33 Pain Level 0 11/25/23 08:05 Comment blood pressure medicine given now. Will recheck bp in 30 min to 1 hour 11/25/23 20:45 Intake & Output 11/25/23 11/25/23 11/26/23 11:59 23:59 11:59 Other: Urine Color Pale Pale
[2023-11-26 09:10] VITALS: BP 125/80
== END 2023-11-26 11:05 | disposition home or self-care (01) | DRG 807 ==
PROVIDERS: Admitting Provider Advanced Practice Midwife; PCP Student in an Organized Health Care Education/Training Program; Visit Provider Advanced Practice Midwife
DX: O13.4 Gestational [pregnancy-induced] hypertension without significant proteinuria, complicating childbirth (principal); Z37.0 Single live birth; Z3A.38 38 weeks gestation of pregnancy; O70.0 First degree perineal laceration during delivery
CPT/HCPCS: 36415; 80053; 85027; 86850; 86900; 86901; 59200; 84550; J2003; J2590; J3490

== ENCOUNTER 2023-11-26 21:37 | Observation (INO) | payer OTHER, SELFPAY ==
[2023-11-26 22:16] LABS: HCT 31.9 % (36.0-46.0); HGB 10.7 g/dL (11.2-15.7); MCH 29.5 pg (27.0-33.0); MCHC 33.5 % (32.0-36.0); MCV 88 fL (80-95); MPV 10.7 fL (8.0-11.0); Platelet Count 235 10^3/uL (130-400); RBC 3.63 10^6/uL (3.93-5.22); RDW 12.4 % (11.7-14.6); RDW-SD 40.1 fL; WBC 13.16 10^3/uL (4.4-10.8)
[2023-11-26 22:32] LABS: ALT 28 U/L (14-59); AST 19 U/L (15-37); Albumin 2.4 g/dL (3.4-5.0); Alkaline Phosphatase 102 U/L (46-116); BUN 17 mg/dL (7-18); Bilirubin, Total 0.2 mg/dL (0.2-1.0); CREATININE 0.8 mg/dL (0.55-1.02); Calcium 9.4 mg/dL (8.5-10.1); Chloride 102 mmol/L (98-107); Estimated GFR 94.87 (mL/min/1.73m2); Glucose 124 mg/dL (74-106); Potassium 3.4 mmol/L (3.5-5.1); Sodium 137 mmol/L (136-145); Total Protein 6.3 g/dL (6.4-8.2); Uric Acid 4.8 mg/dL (2.6-6.0)
[2023-11-26 22:55] VITALS: BP 135/77; PULSE 70; RESP 18
--- NOTE | 2023-11-26 23:02 | HPE_ITS ---
Date of service: 11/26/23 Time of Service: 23:02 Assessment and Plan Assessment and plan (1) Term of male : Status: Acute (2) Gestational hypertension: Status: Acute Assessment and plan: Pt has been discharged to home today, home BP check was elevated even after increasing Labetalol dose from 100 mg to 200 mg. Came in for BP check and HTN labs. Labs are nml and stable, BP 130's over 70-80's on 2 readings. Pt opts to return home, will come back for BP check in 2 days, will continue Labetalol 200 mg PO BID Qualifiers: Trimester: unspecified trimester Qualified Code(s): O13.9 - Gestational [-induced] hypertension without significant proteinuria, unspecified trimester (3) care and examination: Status: Acute (4) Encounter for care of lactating mother: Status: Acute OB-HPI Labor/Delivery History of Present Illness Reason for Visit: Hypertension Chief Complaint: Other (elevated BP at home). LEE ANN Calculator Estimated Delivery Date Method WG Current Estimate 12/04/23 LMP (Certain) Other Estimates 12/07/23 Ultrasound #1 Infant Delivery Date-Baby A 11/24/23 38w 4d History of Present Expected Delivery Route/Plan - CNM FOB - Foster Lord (2nd baby together) BB no circ GBS negative Would like to try nitrous oxide and the tub. Specific Issues/Plan 1. AMA - offered level 2 US- Nml Panorama, AFP declined. CF previously negative. 1a. Level 2 scan @ [facility]=nml. MFM: repeat scan at 32-24 wks, twice wkly NST @ 37 wks, consider IOL 8-39 wks due to hypertension and AMA 2. Hx episode of HTN which resolved (no meds), hx of pre-eclampsia - ASA daily @ 12 wks recommended. 24-hour urine - unable to calculate due to low protein 2a. Labs for elevated BP 08/31, results nml 2b. BP elevated - preeclampsia screen WNL 09/30/23, weekly visits and monthly growth US recommended and preeclampsia screen repeated -P/C ratio 0.19 2c. Labetalol 100 mg BID started 10/21. Weekly NST at 33 weeks. IOL at 38-39 wks on 11/23/23. 3. Tandem Nursing. Stopped @ 24 wks 4. Flu vaccine given 08/31, desires TDAP 5. Covid infection 10/27 PFSH All Active Problems (Updated 11/26/23 @ 23:10 by Blanka Boudreaux) Encounter for care of lactating mother (Acute) care and examination (Acute) Term of male (Acute) Gestational hypertension (Acute) History of anaphylaxis (Acute) Epi refilled, 04/24/23. Hx: saw [facility] post ED in [place], (04/16/23). She presented with itching, facial burning, red rash, N&V and throat fullness. Cause of the reaction was not known. She said symptoms started when she was eating a fish sandwich and started with itching and burning in her face that then migrated throughout her body. She vomited several times. There was no SOB or airway involvement. Sees [facility] allergy clinic last note 07/21/23 Metatarsalgia, right foot (Acute) Stress incontinence in female (Acute) Mild, 2' cough. 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 expected to be controlled with activity/exercise [and less/no overnight nursing shifts]. Surgical History [place] teeth removed Family History Father Hypertension Paternal Grandmother Cancer Breast cancer Maternal Grandfather Cancer Sister Mental illness in member of household Mother Hypertension Brother Asthma Paternal Grandfather Alzheimer disease Social History Smoking/Tobacco Use Status: Never Smoking risk assessment performed?: Yes Alcohol Intake: former Drug use: Never Substance use type: does not use Adopted: No Caregiver/Support person: No Foster care: No Household members: significant other and children Housing: house Number of Children: 1 number of grandchildren: 0 Communication Needs: None Education Level: college Details: Bachelor's Degree 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 Pets and animals: Yes (1) Pets and animals: dog(s) Sexually active: Yes Do you think of yourself as: straight/heterosexual Current gender identity: female What is your relationship status?: living with partner How often do you talk on the phone with friends or family?: three or more times per week How often do you get together with friends or relatives?: once per week Do you belong to any clubs or organized social groups?: yes Panel score (0-1 are the most socially isolated patients): 3 What type of physical activity do you participate in: walking and other Details: hiking Duration: 30-45 minutes/day Frequency: 5-6 times per week Special anjali needs: No Seatbelt use: always Helmet use: Yes Helmet use: always Drive intox or ride w/intox waste collection driver: No Do you feel safe at home: Yes Do you feel safe in your relationship?: Yes History History 2 Para 1 Hx # Term Pregnancies 1 Multiple births 0 Hx # Pregnancies 0 Ectopic pregnancies 0 AB induced 0 Hx Number of Living Children 1 AB spontaneous 0 Past Pregnancies Del. Date GA/Weeks # Preg Succ Route Wgt Sex Labor Lgth Anesth esia Location Prov [facility] 07/20/21 38 No Yes vaginal 8 lb Male 12 hr active la bor, after 3 days of labor, PP readmit for [facility] ([place]) Delivery Date: 07/20/21 Last Updated by: Chloé Dawn, [facility], [place], [facility] due to preeclampsia, readmission post for treatment with Magso4. Discharged on procardia post . Switched to labetalol and hydralazine in 11/2021 by PCP. Discontinue meds after weaning down 03/2022 Meds Allergies and Home Medications Allergies Allergy/AdvReac Type Severity Reaction Status Date / Time bee venom protein (honey bee) Allergy Intermediate Verified 11/18/23 08:29 Home Medications Medication Instructions Recorded Confirmed Type prenat.vits,ephraim,[id number] 1 tab PO DAILY 04/06/23 11/23/23 History famotidine 10 mg tablet (Pepcid AC) 10 mg PO PRN s/s related to 04/21/23 11/23/23 History allergic reaction epinephrine 0.3 mg/0.3 mL 0.3 mg (0.3 mL) IM ONCE #2 ea 04/30/23 11/23/23 Rx injection, auto-injector (EpiPen 2-Wesley) loratadine 10 mg tablet (Claritin) See Rx Instructions PO DAILY PRN 07/07/23 11/23/23 History allergic symptoms/pruritus labetalol 100 mg tablet 200 mg (2 x 100 mg) PO BID #60 tabs 11/26/23 Rx Exam Physical Exam Vital signs: Pulse Resp BP 70 18 135/77 11/26/23 22:55 11/26/23 22:55 11/26/23 22:55 Vital Signs Reviewed: Yes Constitutional Constitutional: no acute distress and cooperative Detailed Labor and Delivery Exam Zhou Score: Cervical Points Exam 0 1 2 3 Dilation Closed 1-2cm 3-4 cm 5-6cm Effacement 0-30% 40-50% 60-70% 80% Consistency Firm Medium Soft Station -3 -2 -1,0 +1,+2 Position Posterior Mid Anterior Respiratory Exam Respiratory Exam: Normal Cardiovascular Exam Cardiovascular Exam: Normal Abdominal Exam Abdominal Exam: Normal Extremities Exam Extremities Exam: Normal Skin Exam Skin Exam: Normal Neurological Exam Neurological Exam: Normal Psychiatric Exam Psychiatric Exam: Normal Results Abnormal Lab Findings: Abnormal Labs 11/26/23 22:10 WBC 13.16 H RBC 3.63 L Hgb 10.7 L Hct 31.9 L Potassium 3.4 L Glucose 124 H Total Protein 6.3 L Albumin 2.4 L Risk Assessment Risk for Shoulder Dystocia Historical/Initial OB: NEGATIVE FOR: Pelvic Abnormality, Pre- BMI>30, Previous Shoulder Dystocia or Previous Macrosomia 40 Weeks: POSTIVE FOR: Maternal Weight Gain >40lb Risk for Pre-Eclampsia Date Initiated/Initials: KM Yes, if one or more: POSTIVE FOR: Hx Pre-E/Gest HTN Yes, if 2 or more: POSITIVE FOR: Age>= 35 yrs Risk for Post- Hemorrhage Initial: NEGATIVE FOR: Multiple Gestation, Previous PPH, Known Clotting Defici ency, Grand Multiparity or Anticoagulation 36 Weeks: POSITIVE FOR: Gestational HTN or Pre-E 40 Weeks: POSITIVE FOR: Gestation HTN or Pre-E Risks Reviewed Risks Reviewed Upon Admission: Yes
--- NOTE | 2023-11-26 23:10 | DSE_ITS ---
Date of service: 11/26/23 Time of Service: 23:11 DS: Diagnosis Discharge Diagnosis (1) Term of male : Status: Acute (2) Gestational hypertension: Status: Acute (3) care and examination: Status: Acute (4) Encounter for care of lactating mother: Status: Acute Discharge Plan Disposition Patient Disposition: Home Condition: Improving Discharge Details Reason For Visit: Hypertension Admit Date/Time: 11/26/23 21:37 Admit Provider: Bev Martell Attending Provider: Bev Martell [facility] Course: 2-3 hours observation, labs drawn. Home Meds and New Rx's Prescriptions: No Action prenat.vits,ephraim,[id number] Tablet 1 tab PO DAILY famotidine [Pepcid AC] 10 mg tablet 10 mg PO PRN epinephrine [EpiPen 2-Wesley] 0.3 mg/0.3 mL auto-injector 0.3 mg IM ONCE Qty: 2 1RF Rx Instructions: as a single dose; may repeat once loratadine [Claritin] 10 mg tablet See Rx Instructions PO DAILY PRN (Reason: allergic symptoms/pruritus) Rx Instructions: 1 tab every morning. Repeat in the afternoon or evening if having increased pruritus orally daily PRN; labetalol 100 mg tablet 200 mg PO BID Qty: 60 7RF Discharge Instructions Additional Instructions: Return Wednesday 11/29 for BP check Activity:: Activity as Tolerated Equipment/Supplies:: No Equipment Needed Diet:: Normal Diet Discharge Orders Discharge Orders: Discharge Order (Routine); Ordered 11/26/23 Ordered By: Blanka Boudreaux OB:DS Summary Contraception Discussed Contraception Discussed: No, Status at Discharge Functional status at discharge: independent ambulation Overall status at discharge: patient is progressing back to baseline Mental Status: mental status grossly normal Speech and Movement: speech and movement normal and speech clear Mood: congruent mood Affect: normal affect Quality:SDOH Health Related Social Needs: No Data to Display Exam Physical Exam Vital signs: Pulse Resp BP 70 18 135/77 11/26/23 22:55 11/26/23 22:55 11/26/23 22:55 Constitutional Constitutional: no acute distress and cooperative Respiratory Exam Respiratory Exam: Normal Cardiovascular Exam Cardiovascular Exam: Normal Skin Exam Skin Exam: Normal Neurological Exam Neurological Exam: Normal Psychiatric Exam Psychiatric Exam: Normal PFSH All Active Problems (Updated 11/26/23 @ 23:10 by Blanka Boudreaux) Encounter for care of lactating mother (Acute) care and examination (Acute) Term of male (Acute) Gestational hypertension (Acute) History of anaphylaxis (Acute) Epi refilled, 04/24/23. Hx: saw [facility] ED in [place], (04/16/23). She presented with itching, facial burning, red rash, N&V and throat fullness. Cause of the reaction was not known. She said symptoms started when she was eating a fish sandwich and started with itching and burning in her face that then migrated throughout her body. She vomited several times. There was no SOB or airway involvement. Sees [facility] allergy clinic last note 07/21/23 Metatarsalgia, right foot (Acute) Stress incontinence in female (Acute) Mild, 2' cough. 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 expected to be controlled with activity/exercise [and less/no overnight nursing shifts]. Surgical History [place] teeth removed Family History Father Hypertension Paternal Grandmother Cancer Breast cancer Maternal Grandfather Cancer Sister Mental illness in member of household Mother Hypertension Brother Asthma Paternal Grandfather Alzheimer disease Social History Smoking/Tobacco Use Status: Never Smoking risk assessment performed?: Yes Alcohol Intake: former Drug use: Never Substance use type: does not use Adopted: No Caregiver/Support person: No Foster care: No Household members: significant other and children Housing: house Number of Children: 1 number of grandchildren: 0 Communication Needs: None Education Level: college Details: Bachelor's Degree 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 Pets and animals: Yes (1) Pets and animals: dog(s) Sexually active: Yes Do you think of yourself as: straight/heterosexual Current gender identity: female What is your relationship status?: living with partner How often do you talk on the phone with friends or family?: three or more times per week How often do you get together with friends or relatives?: once per week Do you belong to any clubs or organized social groups?: yes Panel score (0-1 are the most socially isolated patients): 3 What type of physical activity do you participate in: walking and other Details: hiking Duration: 30-45 minutes/day Frequency: 5-6 times per week Special anjali needs: No Seatbelt use: always Helmet use: Yes Helmet use: always Drive intox or ride w/intox fuel truck driver: No Do you feel safe at home: Yes Do you feel safe in your relationship?: Yes History History 2 Para 1 Hx # Term Pregnancies 1 Multiple births 0 Hx # Pregnancies 0 Ectopic pregnancies 0 AB induced 0 Hx Number of Living Children 1 AB spontaneous 0 Past Pregnancies Del. Date GA/Weeks # Preg Succ Route Wgt Sex Labor Lgth Anesth esia Location Prov Complic 07/20/21 38 No Yes vaginal 8 lb Male 12 hr active la bor, after 3 days of labor, PP readmit for [facility] ([place]) Delivery Date: 07/20/21 Last Updated by: Chloé Dawn, [facility], [place], [facility] due to preeclampsia, readmission post for treatment with Magso4. Discharged on procardia post . Switched to labetalol and hydralazine in 11/2021 by PCP. Discontinue meds after weaning down 03/2022 DS: Data Vitals/I&O Vitals and I&O: Vital Signs Pulse 70 11/26/23 22:55 Respiratory Rate 18 11/26/23 22:55 Blood Pressure 135/77 11/26/23 22:55 Blood Pressure Mean 96 11/26/23 22:55 Data Completed and Pending Labs on day of discharge: Labs from last 24 hours 11/26/23 22:10 WBC 13.16 H RBC 3.63 L Hgb 10.7 L Hct 31.9 L MCV 88 MCH 29.5 MCHC 33.5 RDW 12.4 Plt Count 235 MPV 10.7 Sodium 137 Potassium 3.4 L Chloride 102 Carbon Dioxide 26.0 Anion Gap 9.0 BUN 17 Creatinine 0.8 Est GFR (CKD-EPI 2020) 94.87 Glucose 124 H Uric Acid 4.8 Calcium 9.4 Total Bilirubin 0.2 AST 19 ALT 28 Alkaline Phosphatase 102 Total Protein 6.3 L Albumin 2.4 L
== END 2023-11-26 23:18 | disposition home or self-care (01) ==
LOC: OBS 21:52
PROVIDERS: Admitting Provider Advanced Practice Midwife; PCP Student in an Organized Health Care Education/Training Program; Referring Provider Advanced Practice Midwife; Visit Provider Obstetrics & Gynecology
DX: O13.5 Gestational [pregnancy-induced] hypertension without significant proteinuria, complicating the puerperium (principal)
CPT/HCPCS: 80053; 85027; 84550; G0378

== ENCOUNTER 2023-11-29 10:52 | Outpatient (CLI) | payer OTHER, SELFPAY ==
[2023-11-29 11:05] VITALS: BP 133/76; PULSE 70; RESP 12
== END 2023-11-29 10:53 | disposition home or self-care (01) ==
LOC: BCD 10:53
PROVIDERS: PCP Student in an Organized Health Care Education/Training Program; Visit Provider Advanced Practice Midwife
DX: O13.5 Gestational [pregnancy-induced] hypertension without significant proteinuria, complicating the puerperium (principal)
CPT/HCPCS: 99211

== ENCOUNTER 2023-11-30 20:02 | Observation (INO) | payer OTHER, SELFPAY ==
[2023-11-30 20:31] LABS: HGB 11.8 g/dL (11.2-15.7); MCH 29.2 pg (27.0-33.0); MCHC 32.8 % (32.0-36.0); MCV 89 fL (80-95); MPV 10.4 fL (8.0-11.0); Platelet Count 298 10^3/uL (130-400); RBC 4.04 10^6/uL (3.93-5.22); RDW 12.5 % (11.7-14.6); WBC 10.12 10^3/uL (4.4-10.8)
[2023-11-30 20:48] LABS: ALT 43 U/L (14-59); AST 19 U/L (15-37); Albumin 2.7 g/dL (3.4-5.0); Alkaline Phosphatase 97 U/L (46-116); BUN 20 mg/dL (7-18); Bilirubin, Total 0.2 mg/dL (0.2-1.0); Calcium 9.1 mg/dL (8.5-10.1); Chloride 102 mmol/L (98-107); Estimated GFR 72.58 (mL/min/1.73m2); Glucose 113 mg/dL (74-106); Potassium 3.7 mmol/L (3.5-5.1); Sodium 136 mmol/L (136-145); Total Protein 6.7 g/dL (6.4-8.2); Uric Acid 6.5 mg/dL (2.6-6.0)
[2023-11-30 21:19] VITALS: BP 123/92; PULSE 68; RESP 16; TEMP 36.8
[2023-11-30 21:33] LABS: COMMENT (LAB VIEW ONLY) 15.61 mg/dL
[2023-11-30 21:36] LABS: PROTEIN < 6.0 mg/dL
[2023-11-30 21:47] VITALS: BP 141/96
[2023-11-30 22:05] VITALS: BP 132/86
--- NOTE | 2023-11-30 22:11 | DSE_ITS ---
Date of service: 11/30/23 Time of Service: 22:11 DS: Diagnosis Discharge Diagnosis (1) Hypertension, condition or complication: Status: Acute Asessment and Plan: 1. BP not in severe ranges while here at over 2 hours. 2. Pre-eclampsia labs are negative 3. Will discharge to home on current dose, plan to have patient do BP's during day tomorrow and call [facility] with numbers to consider adding another agent or changing meds to achieve better BP control. She agrees to this plan. 4. She is aware of pre-eclampsia warning signs and when to call. Discharge Plan Disposition Patient Disposition: Home Condition: Good Discharge Details Reason For Visit: BP evaluation Admit Date/Time: 11/30/23 20:02 Admit Provider: Chloé Barnes Attending Provider: Chloé Barnes Primary Care Provider: Savanna Browne [facility] Course Hospital Course: BP's not in severe ranges 2 hours post Labetalol 200 mg PO at home. SALVADOR was relieved by tylenol PO. She had pre-eclampsia labs done that are WNL. Will discharge to home and she will monitor BP's during the day tomorrow at home and call [facility] to speak with CNM to review them. If they remain 140's/90's at times will plan to change meds after consultation with OB Physician. Patient is comfor table with this plan and desires discharge to home. Home Meds and New Rx's Prescriptions: Continued prenat.vits,ephraim,[id number] Tablet 1 tab PO DAILY famotidine [Pepcid AC] 10 mg tablet 10 mg PO PRN epinephrine [EpiPen 2-Wesley] 0.3 mg/0.3 mL auto-injector 0.3 mg IM ONCE Qty: 2 1RF Rx Instructions: as a single dose; may repeat once loratadine [Claritin] 10 mg tablet See Rx Instructions PO DAILY PRN (Reason: allergic symptoms/pruritus) Rx Instructions: 1 tab every morning. Repeat in the afternoon or evening if having increased pruritus orally daily PRN; labetalol 100 mg tablet 200 mg PO BID Qty: 60 7RF Discharge Instructions Activity:: Activity as Tolerated Equipment/Supplies:: No Equipment Needed Diet:: As Tolerated Discharge Orders Discharge Orders: Discharge Order (Routine); Ordered 11/30/23 Ordered By: Chloé Barnes OB:DS Summary Summary Procedures: PP observation. Contraception Discussed Contraception Discussed: Yes, Status at Discharge Functional status at discharge: independent ambulation Overall status at discharge: patient is back to baseline Mental Status: mental status grossly normal Speech and Movement: speech and movement normal Mood: congruent mood Affect: normal affect Time Spent with Patient providing and/or coordinating discharge services: Less than 30 minutes Quality:SDTN Health Related Social Needs: No Data to Display Exam Physical Exam Vital signs: Temp Pulse Resp BP 98.3 F 68 16 132/86 11/30/23 21:19 11/30/23 21:19 11/30/23 21:19 11/30/23 22:05 Vital Signs Reviewed: Yes Constitutional Constitutional: no acute distress, average body habitus and cooperative HEENT Exam HEENT Exam: Normal Neck Exam Neck Exam: Normal (normal visual inspection) Respiratory Exam Respiratory Exam: Normal Cardiovascular Exam Cardiovascular Exam: Normal Abdominal Exam Abdomen: Other (normal exam) Fundal Exam Fundus: Below Umbilicus and Firm Comment: small lochia noted. Rectal Exam Rectal Exam: Not Done Exam Patient deferred: perineal exam Extremities Exam Extremity Exam: Normal (denies calf tenderness) and Full ROM Comment: Negative for clonus, 1+ reflexes bilaterally patellar Back/Spine/Pelvis Exam Back Exam: Normal Skin Exam Skin Exam: Normal Neurological Exam Neurological Exam: Normal Psychiatric Exam Psychiatric Exam: Normal PFSH All Active Problems Hypertension, condition or complication (Acute) Encounter for care of lactating mother (Acute) care and examination (Acute) Term of male (Acute) Gestational hypertension (Acute) History of anaphylaxis (Acute) Epi refilled, 04/24/23. Hx: saw [facility] ED in [place], (04/16/23). She presented with itching, facial burning, red rash, N&V and throat fullness. Cause of the reaction was not known. She said symptoms started when she was eating a fish sandwich and started with itching and burning in her face that then migrated throughout her body. She vomited several times. There was no SOB or airway involvement. Sees [facility] allergy clinic last note 07/21/23 Metatarsalgia, right foot (Acute) Stress incontinence in female (Acute) Mild, 2' cough. 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 expected to be controlled with activity/exercise [and less/no overnight nursing shifts]. Surgical History [place] teeth removed Family History Father Hypertension Paternal Grandmother Cancer Breast cancer Maternal Grandfather Cancer Sister Mental illness in member of household Mother Hypertension Brother Asthma Paternal Grandfather Alzheimer disease Social History Smoking/Tobacco Use Status: Never Smoking risk assessment performed?: Yes Alcohol Intake: former Drug use: Never Substance use type: does not use Adopted: No Caregiver/Support person: No Foster care: No Household members: significant other and children Housing: house Number of Children: 1 number of grandchildren: 0 Communication Needs: None Education Level: college Details: Bachelor's Degree 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 Pets and animals: Yes (1) Pets and animals: dog(s) Sexually active: Yes Do you think of yourself as: straight/heterosexual Current gender identity: female What is your relationship status?: living with partner How often do you talk on the phone with friends or family?: three or more times per week How often do you get together with friends or relatives?: once per week Do you belong to any clubs or organized social groups?: yes Panel score (0-1 are the most socially isolated patients): 3 What type of physical activity do you participate in: walking and other Details: hiking Duration: 30-45 minutes/day Frequency: 5-6 times per week Special anjali needs: No Seatbelt use: always Helmet use: Yes Helmet use: always Drive intox or ride w/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 Date GA/Weeks # Preg Succ Route Wgt Sex Labor Lgth Anesth esia Location Prov [facility] 07/20/21 38 No Yes vaginal 8 lb Male 12 hr active la bor, after 3 days of labor, PP readmit for [facility] ([place]) Delivery Date: 07/20/21 Last Updated by: Chloé Dawn, [facility], [place], [facility] due to preeclampsia, readmission post for treatment with Magso4. Discharged on procardia post . Switched to labetalol and hydralazine in 11/2021 by PCP. Discontinue meds after weaning down 03/2022 DS: Data Vitals/I&O Vitals and I&O: Vital Signs Temperature 98.3 F 11/30/23 21:19 Pulse 68 11/30/23 21:19 Respiratory Rate 16 11/30/23 21:19 Respiratory Depth Normal 11/30/23 21:19 Blood Pressure 132/86 11/30/23 22:05 Blood Pressure Mean 101 11/30/23 22:05 Comment pt here for observation for r/o post pre e 11/30/23 21:19 Intake & Output 11/29/23 11/30/23 11/30/23 23:59 11:59 23:59 Weight 209 lb Data Completed and Pending Labs on day of discharge: Labs from last 24 hours 11/30/23 11/30/23 11/30/23 21:04 20:36 19:22 WBC Pending RBC Pending Hgb Pending Hct Pending MCV Pending MCH Pending MCHC Pending RDW Pending Plt Count Pending MPV Pending Sodium Cancelled Potassium Cancelled Chloride Cancelled Carbon Dioxide Cancelled Anion Gap Cancelled BUN Cancelled Creatinine Cancelled Est GFR (CKD-EPI 2020) Cancelled Glucose Cancelled Uric Acid Cancelled Calcium Cancelled Total Bilirubin Cancelled AST Cancelled ALT Cancelled Alkaline Phosphatase Cancelled Total Protein Cancelled Albumin Cancelled Ur Random Creatinine Cancelled 15.61 U Random Total Protein Cancelled < 6.0 U [place] Prot/Creat Ratio Cancelled Patient ABO/Rh Pending Antibody Screen Pending 11/30/23 08:20 WBC 10.12 RBC 4.04 Hgb 11.8 Hct 36.0 MCV 89 MCH 29.2 MCHC 32.8 RDW 12.5 Plt Count 298 MPV 10.4 Sodium 136 Potassium 3.7 Chloride 102 Carbon Dioxide 26.0 Anion Gap 8.0 BUN 20 H Creatinine 1.0 Est GFR (CKD-EPI 2020) 72.58 Glucose 113 H Uric Acid 6.5 H Calcium 9.1 Total Bilirubin 0.2 AST 19 ALT 43 Alkaline Phosphatase 97 Total Protein 6.7 Albumin 2.7 L Ur Random Creatinine U Random Total Protein U [place] Prot/Creat Ratio Patient ABO/Rh Antibody Screen
== END 2023-11-30 22:12 | disposition home or self-care (01) ==
LOC: OBS 20:05
PROVIDERS: Admitting Provider Advanced Practice Midwife; PCP Student in an Organized Health Care Education/Training Program; Visit Provider Advanced Practice Midwife
DX: O10.03 Pre-existing essential hypertension complicating the puerperium (principal); O90.89 Other complications of the puerperium, not elsewhere classified; N39.3 Stress incontinence (female) (male); Z79.899 Other long term (current) drug therapy
CPT/HCPCS: 80053; 85027; 86850; 86900; 86901; 99211; 82565; 84156; 84550; G0378

== ENCOUNTER 2023-12-01 21:04 | Observation (INO) | payer OTHER, SELFPAY ==
[2023-12-01] MEDS: NIFEdipine-CR 30 MG TABCR PO (21:21)
--- NOTE | 2023-12-01 21:54 | W.PM.HP.N ---
Date of service: 12/01/23 Time of Service: 21:40 Assessment and Plan Assessment and plan (1) Hypertension, condition or complication: Status: Acute Assessment and plan: 1. BP not well controlled on Labetalol 200 mg PO daily. Patient was to begin additional therapy of Procardia XL 30 mg daily today but was unable to obtain as pharmacy did not have in stock until 12/02/23. 2. After consultation with Dr. Martell, plan was for patient to be observed on BC for PP HTN and [facility] have BP every 2-3 hours and I&O. If VS stable over night will allow for discharge to home tomorrow. 3. If BP elevations continue despite adding Procardia, will give another PO dose of Labetalol 200 mg PO per consultation with Dr. Martell and observe longer. 4. Pre-eclampsia labs were negative 11/30/23 and per MD consult no need to repeat at this time as patient is otherwise asymptomatic for this condition. 5. Will reassess as indicated by VS. BURTON History of Present Illness History of Present Illness Chief Complaint: elevated BP at home despite prescribed antihypertensive medications Narrative: Mallory presents after speaking with KENIA this evening and reporting that her BP this evening is 158/101 at home. She has been treating HTN during and then after her NVD on 11/24/23 with PO Labetalol. She was on Labetalol 100 mg PO twice daily prior to delivery but was increased to Labetalol 200 mg twice daily prior to discharge from hospital. Since discharge she has returned twice prior to [facility] with elevated BP's. She has had evaluation for pre-eclampsia twice with last testing done 11/30/23 in the evening. Her testing does not indicated PP Pre-eclampsia. She denies signs of pre-eclampsia as well. She is otherwise a healthy 43 year old woman. She is currently breast feeding her . Denies significant pain. Is experiencing normal PP vaginal bleeding. Denies difficulty with bowel or bladder. During the afternoon of 12/01/23 Mallory called our office reporting BP elevations 2-3 hours after Labetalol dose. At that time, development writer had consulted with Dr. Martell who added Procardia XL 30 mg daily to her medications and planned to have Mallory follow up with reporting her home BP's to us on 12/02/23. Mallory called CNM this evening reporting that she took her Labetalol 200 mg at approximately 0600 today then noted BP elevations between noon and 2pm which she reported to us by phone. At that time we sent in a prescription for Procardia 30mg XL and she was going to take Labetalol 200mg PO then and then take the Procardia in the evening after picking up prescription. Mallory reported that her prescription cannot be obtained until 12/02/23 and her BP was elevated to 158/101 in evening of 12/01/23 and she was encouraged to come to for a dose of Procardia 30 mg XL and BP evaluations over night. 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 Martell about plan to observe overnight. KH Review of Systems All systems reviewed & are unremarkable except as noted in HPI and below Cardiovascular Cardiovascular: Reports as per HPI Psychiatric Psychiatric: Reports as per HPI and Reports abnormal sleep pattern (related to feeding and caring for ) PFSH All Active Problems Hypertension, condition or complication (Acute) Encounter for care of lactating mother (Acute) care and examination (Acute) Term of male (Acute) Gestational hypertension (Acute) History of anaphylaxis (Acute) Epi refilled, 04/24/23. Hx: saw [facility] post ED in [place], (04/16/23). She presented with itching, facial burning, red rash, N&V and throat fullness. Cause of the reaction was not known. She said symptoms started when she was eating a fish sandwich and started with itching and burning in her face that then migrated throughout her body. She vomited several times. There was no SOB or airway involvement. Sees [facility] allergy clinic last note 07/21/23 Metatarsalgia, right foot (Acute) Stress incontinence in female (Acute) Mild, 2' cough. 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 expected to be controlled with activity/exercise [and less/no overnight nursing shifts]. Surgical History [place] teeth removed Family History Father Hypertension Paternal Grandmother Cancer Breast cancer Maternal Grandfather Cancer Sister Mental illness in member of household Mother Hypertension Brother Asthma Paternal Grandfather Alzheimer disease Social History Smoking/Tobacco Use Status: Never Smoking risk assessment performed?: Yes Alcohol Intake: former Drug use: Never Substance use type: does not use Adopted: No Caregiver/Support person: No Foster care: No Household members: significant other and children Housing: house Number of Children: 1 number of grandchildren: 0 Communication Needs: None Education Level: college Details: Bachelor's Degree 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 Pets and animals: Yes (1) Pets and animals: dog(s) Sexually active: Yes Do you think of yourself as: straight/heterosexual Current gender identity: female What is your relationship status?: living with partner How often do you talk on the phone with friends or family?: three or more times per week How often do you get together with friends or relatives?: once per week Do you belong to any clubs or organized social groups?: yes Panel score (0-1 are the most socially isolated patients): 3 What type of physical activity do you participate in: walking and other Details: hiking Duration: 30-45 minutes/day Frequency: 5-6 times per week Special anjali needs: No Seatbelt use: always Helmet use: Yes Helmet use: always 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 Date GA/Weeks # Preg Succ Route Wgt Sex Labor Lgth Anesthesia Location Prov Complic 07/20/21 38 No Yes vaginal 8 lb Male 12 hr active labor, after 3 days of labor, PP readmit for [facility] ([place]) Delivery Date: 07/20/21 Last Updated by: Chloé Dawn CNM [facility], [place], IOL due to preeclampsia, readmission post for treatment with Magso4. Discharged on procardia post . Switched to labetalol and hydralazine in 11/2021 by PCP. Discontinue meds after weaning down 03/2022 Meds Allergies and Home Medications Allergies Allergy/AdvReac Type Severity Reaction Status Date / Time bee venom protein (honey bee) Allergy Intermediate Verified 12/01/23 22:04 Home Medications Medication Instructions Recorded Confirmed Type prenat.vits,ephraim,ucb-afpy-zxzne 1 tab PO DAILY 04/06/23 12/01/23 History famotidine 10 mg tablet (Pepcid AC) 10 mg PO PRN s/s related to 04/21/23 12/01/23 History allergic reaction epinephrine 0.3 mg/0.3 mL 0.3 mg (0.3 mL) IM ONCE #2 ea 04/30/23 12/01/23 Rx injection, auto-injector (EpiPen 2-Wesley) loratadine 10 mg tablet (Claritin) See Rx Instructions PO DAILY PRN 07/07/23 12/01/23 History allergic symptoms/pruritus labetalol 100 mg tablet 200 mg (2 x 100 mg) PO BID #60 tabs 11/26/23 12/01/23 Rx nifedipine 30 mg tablet,extended 30 mg PO DAILY #30 tabs 12/01/23 12/01/23 Rx release 24 hr (Procardia XL) Exam Narrative Exam Narrative: Normal exam except for BP elevations Const General: cooperative, healthy appearing, well developed and well groomed Nutritional Appearance: average body habitus and well nourished Orientation: alert and oriented x3 HENOH Head: normocephalic and atraumatic Ears: hearing grossly normal bilaterally and external ears normal General nose exam: external nose normal and nares normal Eyes General: appearance normal, both eyes and all related structures Eyelids: eyelids normal Conjunctivae: conjunctivae normal Sclera: sclerae normal Neck Neck: normal visual inspection and full ROM Chest Breast inspection: normal inspection of the breasts Resp Effort & Inspection: normal respiratory effort and able to speak in complete sentences Auscultation: clear to auscultation bilaterally Cardio Rate: regular rate Rhythm: regular rhythm Other: deferred Back/Spine/Pelvis Back: no CVA tenderness Skin General skin exam: no rashes or lesions noted and turgor normal Neuro General: gait normal, tone normal and moves all extremities Cognition: normal cognition Speech: speech normal Gait: normal gait DTR's: Rt Patellar: 1+ and Lt Patellar: 1+ Extrem General: normal to inspection, full ROM, no pedal edema and no calf tenderness Psych Appearance: grossly normal and well kempt Mental Status: mental status grossly normal Speech and Movement: speech and movement normal Mood: congruent mood Affect: normal affect Attitude: cooperative Thought Process: normal Thought Content: normal Insight: insight good Judgment: judgment good Time Spent Time spent with Patient: <40 minutes Time was spent: preparing to see the patient(eg.review tests), ordering medications,tests, procedures, referring, communicating with other health wound care coordinator and counseling the patient
[2023-12-01 22:27] VITALS: BP 119/72; PULSE 61; RESP 16; TEMP 37.1; O2SAT 97
[2023-12-02 00:22] VITALS: BP 117/74
[2023-12-02 01:26] VITALS: BP 117/67
[2023-12-02 03:51] VITALS: BP 112/75
[2023-12-02 05:30] VITALS: BP 119/76
[2023-12-02 08:35] VITALS: BP 115/58; PULSE 74; RESP 16; TEMP 36.5; O2SAT 97
[2023-12-02] MEDS: Labetalol 100 MG TAB 200 MG PO (08:40)
[2023-12-02] MEDS: Acetaminophen 325 MG TAB (08:50)
[2023-12-02] MEDS: Docusate Sodium 100 MG CAP PO (08:50)
[2023-12-02 10:50] VITALS: BP 104/66; PULSE 72
--- NOTE | 2023-12-02 10:52 | OBCE_ITS ---
Date of service: 12/02/23 Time of Service: 10:53 Assessment and Plan Assessment and plan (1) Hypertension, condition or complication: Status: Acute Assessment and plan: Patient will be discharged to home on her oral medication which is labetalol, 200 mg twice daily and Procardia XL 30 mg daily. She will be seen in close follow-up for blood pressure check. She will continue home blood pressure monitoring and report symptoms as warranted. All of her questions were answered today. History of Present Illness History of Present Illness Chief Complaint: hypertension Narrative: This is a patient well-known to the obstetrics service. She has had care throughout the course of this by our midwifery service in conjunction with physicians. She underwent a vaginal delivery on 09/24/2024 with subsequent elevation in blood pressures. She, to this point has had normal preeclamptic labs without significant symptoms, however does have on occasion severe range blood pressures. She had been discharged to home on labetalol 200 mg twice daily which was an increase from her previous dosage of 100 mg twice daily. Since that time, she has been very good about monitoring her blood pressures and had home blood pressure that was elevated. The recommendation was to add Procardia, XL 30 mg daily, however she was unable to obtain this as the pharmacy as an outpatient did not have the medication available. She had an elevated blood pressure and for this reason was asked to come to the hospital for evaluation, and medication management. She received a dose of Procardia yesterday evening with return of normal blood pressures. She continues to feel well without headache, visual changes, or concerns of worsening of her hypertension. We did conversation today in the presence of Brigitte Barnes CNM, the patient, and her regarding ongoing care. At this point, she will continue on her labetalol, 200 mg twice daily with the addition of her Procardia on a daily basis. She will have close outpatient follow-up, and continue to monitor her blood pressures at home. She is well-informed on signs and symptoms of worsening preeclampsia. Reassurance was given. Careful monitoring of her blood pressures will be undertaken. Consults Consult date: 12/02/23 Review of Systems Narrative: Patient feels well, denies cephalgia, visual changes, increasing or worsening edema, epigastric pain. She is breast-feeding without difficulty, and her lochia is physiologic. PFSH All Active Problems Hypertension, condition or complication (Acute) Encounter for care of lactating mother (Acute) care and examination (Acute) Term of male (Acute) Gestational hypertension (Acute) History of anaphylaxis (Acute) Epi refilled, 04/24/23. Hx: saw [facility] ED in [place], (04/16/23). She presented with itching, facial burning, red rash, N&V and throat fullness. Cause of the reaction was not known. She said symptoms started when she was eating a fish sandwich and started with itching and burning in her face that then migrated throughout her body. She vomited several times. There was no SOB or airway involvement. Sees [facility] allergy clinic last note 07/21/23 Metatarsalgia, right foot (Acute) Stress incontinence in female (Acute) Mild, 2' cough. 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 expected to be controlled with activity/exercise [and less/no overnight nursing shifts]. Surgical History [place] teeth removed Family History Father Hypertension Paternal Grandmother Cancer Breast cancer Maternal Grandfather Cancer Sister Mental illness in member of household Mother Hypertension Brother Asthma Paternal Grandfather Alzheimer disease Social History Smoking/Tobacco Use Status: Never Smoking risk assessment performed?: Yes Alcohol Intake: former Drug use: Never Substance use type: does not use Adopted: No Caregiver/Support person: No Foster care: No Household members: significant other and children Housing: house Number of Children: 1 number of grandchildren: 0 Communication Needs: None Education Level: college Details: Bachelor's Degree 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 Pets and animals: Yes (1) Pets and animals: dog(s) Sexually active: Yes Do you think of yourself as: straight/heterosexual Current gender identity: female What is your relationship status?: living with partner How often do you talk on the phone with friends or family?: three or more times per week How often do you get together with friends or relatives?: once per week Do you belong to any clubs or organized social groups?: yes Panel score (0-1 are the most socially isolated patients): 3 What type of physical activity do you participate in: walking and other Details: hiking Duration: 30-45 minutes/day Frequency: 5-6 times per week Special anjali needs: No Seatbelt use: always Helmet use: Yes Helmet use: always 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 Date GA/Weeks # Preg Succ Route Wgt Sex Labor Lgth Anesth esia Location [facility] 07/20/21 38 No Yes vaginal 8 lb Male 12 hr active la bor, after 3 days of labor, PP readmit for [facility] ([place]) Delivery Date: 07/20/21 Last Updated by: Chloé Dawn, [facility], [place], [facility] due to preeclampsia, readmission post for treatment with Magso4. Discharged on procardia post . Switched to labetalol and hydralazine in 11/2021 by PCP. Discontinue meds after weaning down 03/2022 Results Last Vital Signs Temp 97.7 F 12/02/23 08:35 Pulse 74 12/02/23 08:35 Resp 16 12/02/23 08:35 BP 115/58 L 12/02/23 08:35 Pulse Ox 97 12/02/23 08:35
--- NOTE | 2023-12-02 11:14 | DSE_ITS ---
Date of service: 12/02/23 Time of Service: 11:14 DS: Diagnosis Discharge Diagnosis (1) Hypertension, condition or complication: Status: Acute Asessment and Plan: 1. BP was well controlled with adding Procardia XL 30 mg PO during evening of 12/01/23. She will continue with Labetalol 200 mg twice daily and Procardia XL 30 mg daily. 2. Adrianne will hold dose of Labetalol if BP < 120/70 and she is due for both Procardia and Labetalol. 3. To follow up in office in < 1 week and continue to report any abnormal BP's to [facility] vector control specialist CNM. 4. Labs done 11/30/23 were all negative for PP pre-eclampsia Discharge Plan Disposition Patient Disposition: Home Condition: Improving Discharge Details Reason For Visit: hypertension Admit Date/Time: 12/01/23 21:04 Admit Provider: Chloé Barnes Attending Provider: Chloé Barnes Primary Care Provider: Savanan Browne Hospital Course Hospital Course: Observation over night in order to reach adequate BP control with addition of medications. She did well with Procardia XL and her Labetalol doses and feels well today. Will be discharged to return in < 1 week for follow up or prn. KH Home Meds and New Rx's Prescriptions: Continued prenat.vits,ephraim,hrr-svqd-nmatr Tablet 1 tab PO DAILY famotidine [Pepcid AC] 10 mg tablet 10 mg PO PRN epinephrine [EpiPen 2-Wesley] 0.3 mg/0.3 mL auto-injector 0.3 mg IM ONCE Qty: 2 1RF Rx Instructions: as a single dose; may repeat once loratadine [Claritin] 10 mg tablet See Rx Instructions PO DAILY PRN (Reason: allergic symptoms/pruritus) Rx Instructions: 1 tab every morning. Repeat in the afternoon or evening if having increased pruritus orally daily PRN; labetalol 100 mg tablet 200 mg PO BID Qty: 60 7RF nifedipine [Procardia XL] 30 mg tablet extended release 24hr 30 mg PO DAILY Qty: 30 0RF Discharge Instructions Instructions: Nifedipine (By mouth) Activity:: Activity as Tolerated Equipment/Supplies:: No Equipment Needed Diet:: As Tolerated Discharge Orders Discharge Orders: Discharge Order (Routine); Ordered 12/02/23 Ordered By: Chloé Barnes OB:DS Summary Summary Procedures: PP observation and discharge Contraception Discussed Contraception Discussed: Yes, Status at Discharge Functional status at discharge: independent ambulation Overall status at discharge: patient is back to baseline Mental Status: mental status grossly normal Speech and Movement: speech and movement normal Mood: congruent mood Affect: normal affect Time Spent with Patient providing and/or coordinating discharge services: Less than 30 minutes Quality:SDOH Health Related Social Needs: No Data to Display Exam Physical Exam Vital signs: Temp Pulse Resp BP Pulse Ox 97.7 F 72 16 104/66 97 12/02/23 08:35 12/02/23 10:50 12/02/23 08:35 12/02/23 10:50 12/02/23 08:35 Vital Signs Reviewed: Yes Constitutional Constitutional: no acute distress HEENT Exam HEENT Exam: Normal Neck Exam Neck Exam: Normal Respiratory Exam Respiratory Exam: Normal Cardiovascular Exam Cardiovascular Exam: Normal Fundal Exam Fundus: Below Umbilicus and Firm Rectal Exam Rectal Exam: Not Done Exam Patient deferred: perineal exam Extremities Exam Extremity Exam: Normal Back/Spine/Pelvis Exam Back Exam: Not Done Skin Exam Skin Exam: Normal Neurological Exam Neurological Exam: Normal Psychiatric Exam Psychiatric Exam: Normal PFSH All Active Problems Hypertension, condition or complication (Acute) Encounter for care of lactating mother (Acute) care and examination (Acute) Term of male (Acute) Gestational hypertension (Acute) History of anaphylaxis (Acute) Epi refilled, 04/24/23. Hx: saw [facility] post ED in [place], (04/16/23). She presented with itching, facial burning, red rash, N&V and throat fullness. Cause of the reaction was not known. She said symptoms started when she was eating a fish sandwich and started with itching and burning in her face that then migrated throughout her body. She vomited several times. There was no SOB or airway involvement. Sees [facility] allergy clinic last note 07/21/23 Metatarsalgia, right foot (Acute) Stress incontinence in female (Acute) Mild, 2' cough. 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 expected to be controlled with activity/exercise [and less/no overnight nursing shifts]. Surgical History [place] teeth removed Family History Father Hypertension Paternal Grandmother Cancer Breast cancer Maternal Grandfather Cancer Sister Mental illness in member of household Mother Hypertension Brother Asthma Paternal Grandfather Alzheimer disease Social History Smoking/Tobacco Use Status: Never Smoking risk assessment performed?: Yes Alcohol Intake: former Drug use: Never Substance use type: does not use Adopted: No Caregiver/Support person: No Foster care: No Household members: significant other and children Housing: house Number of Children: 1 number of grandchildren: 0 Communication Needs: None Education Level: college Details: Bachelor's Degree 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 Pets and animals: Yes (1) Pets and animals: dog(s) Sexually active: Yes Do you think of yourself as: straight/heterosexual Current gender identity: female What is your relationship status?: living with partner How often do you talk on the phone with friends or family?: three or more times per week How often do you get together with friends or relatives?: once per week Do you belong to any clubs or organized social groups?: yes Panel score (0-1 are the most socially isolated patients): 3 What type of physical activity do you participate in: walking and other Details: hiking Duration: 30-45 minutes/day Frequency: 5-6 times per week Special anjali needs: No Seatbelt use: always Helmet use: Yes Helmet use: always Drive intox or ride w/intox emt driver: No Do you feel safe at home: Yes Do you feel safe in your relationship?: Yes History History 2 Para 1 Hx # Term Pregnancies 1 Multiple births 0 Hx # Pregnancies 0 Ectopic pregnancies 0 AB induced 0 Hx Number of Living Children 1 AB spontaneous 0 Past Pregnancies Del. Date GA/Weeks # Preg Succ Route Wgt Sex Labor Lgth Anesth esia Location Prov Complic 07/20/21 38 No Yes vaginal 8 lb Male 12 hr active la bor, after 3 days of labor, PP [place] [facility] [place] Delivery Date: 07/20/21 Last Updated [facility]: [facility] [place] due to pre[facility], readmission post for treatment with Magso4. Discharged on procardia post . Switched to labetalol and hydralazine in 11/2021 by PCP. Discontinue meds after weaning down 03/2022 DS: Data Vitals/I&O Vitals and I&O: Vital Signs Temperature 97.7 F 12/02/23 08:35 Temperature Source Oral 12/02/23 08:35 Pulse 72 12/02/23 10:50 Pulse Rhythm Regular 12/02/23 08:35 Respiratory Rate 16 12/02/23 08:35 Respiratory Effort Normal, Non-Labored 12/02/23 08:35 Respiratory Depth Normal 12/02/23 08:35 Respiratory Pattern Normal 12/02/23 08:35 Blood Pressure 104/66 12/02/23 10:50 Pulse Oximetry 97 12/02/23 08:35 Oxygen Delivery Method Room Air 12/02/23 08:35 Oxygen Flow Rate 0 12/02/23 08:35 Pain Level 3 12/02/23 08:50 Comment Patient checked her home B/P machine to compare with ours; Home vital signs 106/66 HR 74 12/02/23 10:50 Intake & Output 12/01/23 12/01/23 12/02/23 11:59 23:59 11:59 Intake Total 1000 / 1000 Output Total 2250 / 2250 Balance -1250 / -1250 Weight 6.702 oz Intake: Oral 1000 / 1000 Output: Urine 2250 / 2250 Other: Urine Color Yellow Urine Appearance Clear Urine Odor None Voiding Methods Toilet
== END 2023-12-02 11:43 | disposition home or self-care (01) ==
PROVIDERS: Admitting Provider Advanced Practice Midwife; PCP Student in an Organized Health Care Education/Training Program; Visit Provider Advanced Practice Midwife
DX: O10.03 Pre-existing essential hypertension complicating the puerperium (principal); O90.89 Other complications of the puerperium, not elsewhere classified; M77.41 Metatarsalgia, right foot; N39.3 Stress incontinence (female) (male)
CPT/HCPCS: G0378

== ENCOUNTER 2023-12-29 02:26 | Outpatient (RCR) | payer OTHER, SELFPAY ==
[2023-12-29 09:55] LABS: Hemoglobin A1C 5.2 % (<5.7)
== END 2024-01-20 23:59 | disposition home or self-care (01) ==
LOC: INF 02:26
PROVIDERS: PCP Student in an Organized Health Care Education/Training Program; Visit Provider Student in an Organized Health Care Education/Training Program
DX: Z39.1 Encounter for care and examination of lactating mother (principal); Z39.2 Encounter for routine postpartum follow-up
CPT/HCPCS: 36415; 83036

== ENCOUNTER 2024-08-10 10:53 | Outpatient (REF) | payer OTHER, SELFPAY ==
--- NOTE | 2024-08-10 11:01 | PAPFT_PTH ---
PATIENT: Mallory Ogden LOC: [facility] U#:[id number] AGE/SX: 44/F ROOM: RE08/10/[address]: Chikis Guerrero MD : [id number] BED: DIS: 08/10/2024 SPEC #: [id number] RECD: 08/10/24 13:01 STATUS: DANGELO WERNER #: [id number] QUIN: 08/10/24 11:[address]: Chikis Guerrero DEPT: [facility] Cytology RECD BY: Claire Monique ENTERED: 08/10/24 13:02 SP TYPE: PAPFT OTHR DR: Savanna Browne, DO Tissues: 1 - CX/ENDOCX FOR PAP SMEARS Procedures: PAP THIN PREP/[facility] Screening HPV DNA PROBE Comments: [id number] (HPV 16 & 18/45)
== END 2024-08-10 10:54 | disposition home or self-care (01) ==
LOC: LBN 10:53
PROVIDERS: PCP Student in an Organized Health Care Education/Training Program; Visit Provider Obstetrics & Gynecology
DX: Z12.4 Encounter for screening for malignant neoplasm of cervix (principal)
CPT/HCPCS: 88142; 87624

== ENCOUNTER 2024-08-28 01:16 | Outpatient (CLI) | payer OTHER, SELFPAY ==
--- NOTE | 2024-08-28 12:15 | DI.MAMMO_ITS ---
Exam(s) MAMMO SCREENING EXAM: MAMMO SCREENING CLINICAL HISTORY: screening,Z12.31. TECHNIQUE: Bilateral full field digital CC and MLO mammographic images were obtained with 3D tomosyn thesis and utilizing computer aided detection (CAD). COMPARISON: None. This is a baseline mammogram on this 44-year-old FINDINGS: Fibroglandular tissue pattern is moderately dense, this somewhat decreasing the sensitivity of the ma mmogram for finding hidden underlying lesions.. In the right breast on the MLO view there is a 5 x 4 mm asymmetric density-possible nodule located 6 cm in from the nipple on the MLO view. Spot compression view and ultrasound recommended. In the left breast there is some asymmetric tissue at 2 areas, 1 measuring 1.7 x 1.1 cm and located 3 .5 cm in from the nipple on the CC view, slightly lateral of center.. The other is also lateral of c enter approximately 12 cm in from the nipple on the CC view. Large area of asymmetric density at thi s level with a central 5 mm nodular density. There are no malignant-appearing microcalcification groups in either breast. There is no significant architectural distortion or skin thickening-traction. IMPRESSION: Bilateral findings as described above which require spot compression views and bilateral breast ultra sound. BI-RADS Category 0 - Incomplete: Need additional imaging evaluation Breast Density - Category C - Heterogeneously dense Breast density Category C or D implies that the patient has dense breast tissue. Dense breast tissue can make it harder to find cancer on a mammogram. Dense breast tissue is also associated with an incr eased risk of breast cancer. This information about the result of the mammogram report was provided to the patient to raise their awareness. Use this report when you speak with the patient about their risks for breast cancer, which includes their family history. At that time, you may recommend additional screening tests (Ultrasoun d or MRI) as these tests may add significant information. A negative radiographic report should not delay biopsy if a dominant or clinically suspicious mass is present. Up to ten percent of cancers are not identified on mammography. A negative report may reinforce clinical impression. Adenosis and dense breasts may obscure an underlying neoplasm. False positive reports average 6 to 10%. Patient will receive a letter notifying them of these results.
== END 2024-08-28 01:36 ==
LOC: DI 01:16
PROVIDERS: PCP Student in an Organized Health Care Education/Training Program; Visit Provider Obstetrics & Gynecology
DX: Z12.31 Encounter for screening mammogram for malignant neoplasm of breast (principal); R92.8 Other abnormal and inconclusive findings on diagnostic imaging of breast
CPT/HCPCS: 77063; 77067

== ENCOUNTER 2024-08-29 09:14 | Outpatient (CLI) | payer OTHER, SELFPAY ==
--- NOTE | 2024-08-29 | DI.MAMMO_ITS ---
Exam(s) US BREAST LT COMPLETE US BREAST RT COMPLETE MG MAMMO SCREEN CALL BACK BI EXAM: MG MAMMO SCREEN CALL BACK BI AND BILATERAL COMPLETE BREAST ULTRASOUND CLINICAL HISTORY: F/U MAMMO,RT ASYMMETRIC DENSITY, ? NODULE, LT ASYMMETRIC DENSITY,R92.8. TECHNIQUE: BILATERAL spot mammographic images obtained with 3D tomosynthesisand utilizing computer a ided detection (CAD). . Complete BILATERAL breast Ultrasound was also performed, including all 4 quadrants, the retroareolar regions, and the bilateral axillae COMPARISON: Prior mammograms were reviewed. This additional imaging was performed due to findings described on the recent screening mammogram of 08/28/2024. FINDINGS: DIAGNOSTIC MAMMOGRAM: Additional mammographic views performed todayrender the area in the right breast less concerning Additional mammographic views of the left breast not completely dissipate the findings centrally but do appear to dissipate the findings more peripherally. COMPLETE BILATERAL BREAST ULTRASOUND: Ultrasound performed today reveals no significant focal findings in all 4 quadrants of the right [address] In the left breast there are moderately dilated ducts measuring up to 6 mm corresponding to the relat ively central finding on the mammogram. There is moving material within the ducts and the patient fo dillon made as she is in the breast-feeding at this time. There are no ominous solid lesions seen in all 4 quadrants of the left breast. Scanning of the ipsilateral axilla reveals no significant adenopathy. IMPRESSION: 1. Benign findings as described above. No evidence of malignancy 2. Slightly prominent ducts in the left breast noted which are most probably related to the fact rommel t this patient is presently breast-feeding. Appropriate follow-up is PE this patient on a yearly breast imaging schedule, with earlier imaging i f a self detected breast change is noted.. The patient was informed of these findings and recommendations by myself prior to leaving the departm ent today. BI-RADS Category 2 - Benign Findings Breast Density - Category C - Heterogeneously dense Breast density Category C or D implies that the patient has dense breast tissue. Dense breast tissue can make it harder to find cancer on a mammogram. Dense breast tissue is also associated with an incr eased risk of breast cancer. This information about the result of the mammogram report was provided to the patient to raise their awareness. Use this report when you speak with the patient about their risks for breast cancer, which includes their family history. At that time, you may recommend additional screening tests (Ultrasoun d or MRI) as these tests may add significant information. A negative radiographic report should not delay biopsy if a dominant or clinically suspicious mass is present. Up to ten percent of cancers are not identified on mammography. A negative report may reinforce clinical impression. Adenosis and dense breasts may obscure an underlying neoplasm. False positive reports average 6 to 10%. Patient will receive a letter notifying them of these results.
== END 2024-08-29 09:34 ==
LOC: DI 09:18
PROVIDERS: PCP Student in an Organized Health Care Education/Training Program; Visit Provider Obstetrics & Gynecology
DX: Z12.31 Encounter for screening mammogram for malignant neoplasm of breast (principal); R92.8 Other abnormal and inconclusive findings on diagnostic imaging of breast
CPT/HCPCS: 76642; 77063; 77067